=== PATIENT | male | born 1950 | race Hispanic/Latino ===

== ENCOUNTER 2017-10-29 15:31 | Emergency (ER) | payer OTHER, MEDICARE ==
[~2017-10-29 15:31] MED LIST: ASPI-1197 PO; BACL10TA PO; CLOP75TA32 PO; DILT180C3 PO; INSU300I SQ; LISI-617 PO; METO-409 PO; ROSU20TA38 PO; SPIR25TA4 PO; [UNRECOGNIZED DRUG - CODE] PO
[2017-10-29 16:59] LABS: BASOPHILS % (AUTO) 0.3 % (0.0-5.0); HEMATOCRIT 30.8 % (42-54); LYMPHOCYTES % (AUTO) 5.9 % (21.0-51.0); MEAN CORPUSCULAR VOLUME 88.5 fL (79-99); MONOCYTES % (AUTO) 5.4 % (3.0-13.0); NEUTROPHILS % (AUTO) 88.4 % (40.0-77.0); PLATELET COUNT (AUTO) 247 K/uL (130-400); RED BLOOD CELL COUNT(AUTO) 3.48 MIL/uL (4.50-6.20); RED CELL DISTRIBUTION WIDTH 14.3 % (11.0-15.5)
[2017-10-29 17:10] LABS: CARBON DIOXIDE 28 mmol/L (21-32); CHLORIDE 96 mmol/L (101-111); GLOMERULAR FILTR. RATE CALC 36 mL/min (>60); GLUCOSE,RANDOM 137 mg/dL (70-105); POTASSIUM 3.8 mmol/L (3.5-5.1); SODIUM SERUM 133 mmol/L (136-145); UREA NITROGEN, BLOOD 42 mg/dL (7-18)
[2017-10-29 17:13] LABS: INR 0.96 (0.85-1.15); PARTIAL THROMBOPLASTIN TIME 30.1 SEC (26.3-35.5); PROTHROMBIN TIME 10.1 SEC (9.6-11.6)
[2017-10-29 17:23] LABS: ALANINE AMINOTRANSFERASE 15 U/L (12-78); ALBUMIN 2.7 g/dL (3.5-5.0); ASPARTATE AMINOTRANSFERASE 23 U/L (10-37); BILIRUBIN,TOTAL 0.4 mg/dL (0.2-1.0); CREATINE KINASE MB < 0.5 ng/mL (0.5-3.6); CREATINE KINASE, TOTAL 229 U/L (21-232); MYOGLOBIN 209 ng/mL (10-92); TOTAL PROTEIN, SERUM 7.9 g/dL (6.0-8.3)
== END 2017-10-29 18:29 | disposition short-term general hospital (02) ==
LOC: EDH 15:31
DX: R56.9 Unspecified convulsions (principal); R53.1 Weakness; R27.0 Ataxia, unspecified; E11.9 Type 2 diabetes mellitus without complications; I25.810 Atherosclerosis of coronary artery bypass graft(s) without angina pectoris; Z88.1 Allergy status to other antibiotic agents; Z95.1 Presence of aortocoronary bypass graft; Z95.810 Presence of automatic (implantable) cardiac defibrillator; Z86.73 Personal history of transient ischemic attack (TIA), and cerebral infarction without residual deficits; Z79.4 Long term (current) use of insulin
CPT/HCPCS: 36415; 70450; 71045; 80053; 82550; 82553; 83874; 84484; 85025; 85610; 85730; 93005; 94761

== ENCOUNTER → 2018-11-20 | Outpatient (CLI) | payer OTHER, MEDICARE ==
[~2018-11-20] MED LIST changes: +ROSU20TA30 PO; -ROSU20TA38 PO; -SPIR25TA4 PO; +SPIR25TA6 PO
== END | disposition home or self-care (01) ==
LOC: OIH 10:38
PROVIDERS: ATTEND Family Medicine
DX: M25.571 Pain in right ankle and joints of right foot (principal)
CPT/HCPCS: 73610

== ENCOUNTER → 2019-08-29 | Outpatient (CLI) | payer OTHER, MEDICARE ==
[~2019-08-29] MED LIST changes: -DILT180C3 PO; +DILT180C89 PO; -ROSU20TA30 PO; +ROSU20TA31 PO
== END | disposition home or self-care (01) ==
LOC: RAH 09:55
PROVIDERS: ATTEND Family Medicine
DX: I50.22 Chronic systolic (congestive) heart failure (principal); Z95.0 Presence of cardiac pacemaker; Z98.890 Other specified postprocedural states
CPT/HCPCS: 71046

== ENCOUNTER → 2021-02-06 | Outpatient (CLI) | payer OTHER, MEDICARE ==
[~2021-02-06] MED LIST changes: -LISI-617 PO; +LISI-809 PO
== END | disposition home or self-care (01) ==
LOC: RAH 12:38
PROVIDERS: ATTEND Internal Medicine Cardiovascular Disease
DX: I73.9 Peripheral vascular disease, unspecified (principal); R60.0 Localized edema
CPT/HCPCS: 36415; 85378; 93970

== ENCOUNTER 2021-03-18 06:51 | Observation (INO) | payer OTHER, MEDICARE ==
[2021-03-16 14:23] LABS: BASOPHILS % (AUTO) 0.5 % (0.0-5.0); EOSINOPHILS % (AUTO) 1.9 % (0.0-8.0); HEMATOCRIT 31.3 % (42-54); LYMPHOCYTES % (AUTO) 11.2 % (21.0-51.0); MEAN CORPUSCULAR HEMOGLOBIN 28.4 pg (27.0-33.0); MEAN CORPUSCULAR VOLUME 91.8 fL (79-99); MONOCYTES % (AUTO) 6.9 % (3.0-13.0); NEUTROPHILS % (AUTO) 79.1 % (40.0-77.0); PLATELET COUNT (AUTO) 360 K/uL (130-400); RED BLOOD CELL COUNT(AUTO) 3.41 MIL/uL (4.50-6.20); RED CELL DISTRIBUTION WIDTH 16.6 % (11.0-15.5); WHITE BLOOD COUNT (AUTO) 10.8 K/uL (4.8-10.8)
[2021-03-16 14:30] LABS: INR 1.03 (0.85-1.15); PROTHROMBIN TIME 11.2 SEC (9.6-11.6)
[2021-03-16 14:32] LABS: PARTIAL THROMBOPLASTIN TIME 26.2 SEC (26.3-35.5)
[2021-03-16 14:39] LABS: CREATININE 1.4 mg/dL (0.5-1.5); POTASSIUM 4.3 mmol/L (3.5-5.1)
[2021-03-17 14:04] VITALS: BP 122/52
[~2021-03-18] VITALS: Ht 170.2 cm; Wt 66.3 kg
[2021-03-18] VITALS (12 sets, daily range): BP systolic 129–163; BP diastolic 51–78
[~2021-03-18 06:51] MED LIST changes: +ALEN70TA80 PO; +AMIO200T6 PO; -ASPI-1197 PO; +CARV3.12 PO; -DILT180C89 PO; +FAMO20TA8 PO; +FOLIC ACID PO; +GABA600T10 PO; +GLIP5TAB11 PO; -INSU300I SQ; -LISI-809 PO; +MAGN400T40 PO; -METO-409 PO; +SACU1TAB7 PO; +SITA1TAB2 PO; -SPIR25TA6 PO; -[UNRECOGNIZED DRUG - CODE] PO
[2021-03-18 07:16] LABS: APPEARANCE,URINE Clear (CLEAR); BILIRUBIN,URINE Negative (NEGATIVE); COLOR,URINE Yellow (YELLOW); GLUCOSE, URINE (UA) Negative (NEGATIVE); KETONES,URINE Negative (NEGATIVE); LEUKOCYTE ESTERASE ,URINE Negative (NEGATIVE); NITRATE,URINE Negative (NEGATIVE); OCCULT BLOOD,URINE Negative (NEGATIVE); PROTEIN,URINE POS 2+ mg/dL (NEGATIVE)
[2021-03-18 07:31] LABS: BACTERIA,URINE Few /HPF (None Seen); RBC,URINE 0-1 /HPF (0-1); WBC,URINE 0-1 /HPF (0-1)
[2021-03-18 07:32] LABS: SQUAMOUS EPITHELIAL CELL,UR 0-2 /HPF (0-2)
[2021-03-18] MEDS ORDERED: NACL 0.9% 1000ML 1,000 ML IV SCH ×2 (08:00→14:00)
[2021-03-18] MEDS ORDERED: FENTANYL CITRATE PF 50 MCG/1 ML 2ML VIAL ONE (12:40)
[2021-03-18] MEDS ORDERED: LIDOCAINE HCL 400MG/20ML VIAL ONE (12:40)
[2021-03-18] MEDS ORDERED: SODIUM BICARB 50MEQ 50ML VIAL 50 ML ONE (12:40)
[2021-03-18] MEDS ORDERED: NITROGLYCERIN 2 MG VIAL IV ONE (12:40)
[2021-03-18] MEDS ORDERED: MIDAZOLAM HCL 1 MG/ML 2ML VIAL ONE (12:40)
[2021-03-18] MEDS ORDERED: HEPARIN 10,000 UNIT/10ML (1,000 UNIT/ML) VIAL ONE (12:40)
[2021-03-18] MEDS ORDERED: IODIXANOL 320 MG/ML 100 ML VIAL ONE (12:40)
[2021-03-18] MEDS ORDERED: LABETALOL 20MG VIAL IV ONE (13:24)
[2021-03-18] MEDS ORDERED: DEXTROSE 50%-WATER 50 ML DISP.SYRIN IV PRN (14:00)
[2021-03-18] MEDS ORDERED: GLUCAGON 1MG KIT 1 MG ML IM PRN (14:00)
[2021-03-18] MEDS: INSULIN HUMULIN R 100 UNIT/ML 3ML SQ SCH ×2 (16:30→21:20)
[2021-03-18] MEDS ORDERED: SACUBITRIL PO SCH (21:00)
[2021-03-18] MEDS ORDERED: FAMOTIDINE 20MG TAB PO SCH (21:00)
[2021-03-18] MEDS ORDERED: VALSARTAN PO SCH (21:00)
[2021-03-18] MEDS ORDERED: CARVEDILOL 3.125 MG TABLET PO SCH (21:00)
[2021-03-18] MEDS ORDERED: BACLOFEN 10 MG TABLET PO SCH (21:00)
[2021-03-18] MEDS ORDERED: ATORVASTATIN 40 MG TABLET PO SCH (21:00)
[2021-03-18] MEDS ORDERED: GABAPENTIN 300 MG CAPSULE PO SCH (21:00)
[2021-03-19 00:12] VITALS: BP 140/59
[2021-03-19 03:51] LABS: HEMATOCRIT 30.5 % (42-54); MEAN CORPUSCULAR HEMOGLOBIN 28.5 pg (27.0-33.0); MEAN CORPUSCULAR HGB CONC 31.5 g/dL (32.0-36.0); MEAN CORPUSCULAR VOLUME 90.5 fL (79-99); RED BLOOD CELL COUNT(AUTO) 3.37 MIL/uL (4.50-6.20); RED CELL DISTRIBUTION WIDTH 15.9 % (11.0-15.5); WHITE BLOOD COUNT (AUTO) 9.8 K/uL (4.8-10.8)
[2021-03-19 03:59] LABS: POTASSIUM 3.5 mmol/L (3.5-5.1)
[2021-03-19 04:04] VITALS: BP 149/74
[2021-03-19] MEDS: INSULIN HUMULIN R 100 UNIT/ML 3ML SQ SCH (05:40)
[2021-03-19 09:00] VITALS: BP 137/66
[2021-03-19] MEDS ORDERED: AMIODARONE 200 MG TABLET PO SCH (09:00)
[2021-03-19] MEDS ORDERED: MAGNESIUM OXIDE 400 MG TABLET PO SCH (09:00)
[2021-03-19] MEDS ORDERED: GLIPIZIDE 5 MG TABLET PO SCH (09:00)
[2021-03-19] MEDS ORDERED: FOLIC ACID 1 MG TABLET PO SCH (12:00)
[2021-03-25] MEDS ORDERED: ALENDRONATE SODIUM 35 MG TAB PO SCH (09:00)
== END 2021-03-19 10:30 | disposition home or self-care (01) ==
LOC: DAH 06:51 → DAHIP 06:52 → 2DH 15:44
PROVIDERS: ADMIT Internal Medicine Cardiovascular Disease; ATTEND Internal Medicine Cardiovascular Disease
DX: I70.201 Unspecified atherosclerosis of native arteries of extremities, right leg (principal); E11.51 Type 2 diabetes mellitus with diabetic peripheral angiopathy without gangrene; I11.0 Hypertensive heart disease with heart failure; I50.22 Chronic systolic (congestive) heart failure; I25.10 Atherosclerotic heart disease of native coronary artery without angina pectoris; I25.2 Old myocardial infarction; Z89.612 Acquired absence of left leg above knee; Z95.5 Presence of coronary angioplasty implant and graft; Z95.810 Presence of automatic (implantable) cardiac defibrillator; Z79.899 Other long term (current) drug therapy; Z88.5 Allergy status to narcotic agent
CPT/HCPCS: 36246; 36415 ×2; 71045; 75710; 80048 ×2; 81001; 82948 ×4; 85025; 85027; 85610; 85730; 93005; 96360; A4215; A4216; A4221; A4222; A4223 ×3; A4335; A4606; A4663; C1760; C1769; C1893 ×2; C1894 ×4; G0378 ×19; J1644 ×2; J1815; J2250; J3010; J3490 ×4; J7030; Q9967; 99156; 99157

== ENCOUNTER 2021-03-21 11:44 | Inpatient (IN) | payer OTHER, MEDICARE ==
[~2021-03-21] VITALS: Ht 170.2 cm; Wt 70.7 kg
[~2021-03-21 11:44] MED LIST changes: -AMIO200T6 PO; +AMIO200T68 PO
[2021-03-21] MEDS ORDERED: 0.9%NACL 1000ML 500 ML IV ONE (12:30)
[2021-03-21] MEDS ORDERED: DIPH,PERTUSS(ACELL),TET VAC/PF 0.5 ML VIAL IM ONE (12:30)
[2021-03-21 12:56] LABS: BASOPHILS % (AUTO) 0.4 % (0.0-5.0); HEMATOCRIT 34.5 % (42-54); LYMPHOCYTES % (AUTO) 7.5 % (21.0-51.0); MEAN CORPUSCULAR HGB CONC 31.3 g/dL (32.0-36.0); MEAN CORPUSCULAR VOLUME 92.5 fL (79-99); MONOCYTES % (AUTO) 6.6 % (3.0-13.0); NEUTROPHILS % (AUTO) 84.1 % (40.0-77.0); PLATELET COUNT (AUTO) 329 K/uL (130-400); RED BLOOD CELL COUNT(AUTO) 3.73 MIL/uL (4.50-6.20); RED CELL DISTRIBUTION WIDTH 15.8 % (11.0-15.5); WHITE BLOOD COUNT (AUTO) 14.3 K/uL (4.8-10.8)
[2021-03-21 13:02] LABS: INR 1.01 (0.85-1.15)
[2021-03-21 13:04] LABS: CARBON DIOXIDE 24 mmol/L (21-32); CHLORIDE 104 mmol/L (101-111); CREATININE 1.2 mg/dL (0.5-1.5); GLOMERULAR FILTR. RATE CALC 64 mL/min (>60); GLUCOSE,RANDOM 197 mg/dL (70-105); POTASSIUM 3.7 mmol/L (3.5-5.1); SODIUM SERUM 142 mmol/L (136-145); UREA NITROGEN, BLOOD 27 mg/dL (7-18)
[2021-03-21 13:20] LABS: ALANINE AMINOTRANSFERASE 27 U/L (12-78); ALBUMIN 2.6 g/dL (3.5-5.0); ASPARTATE AMINOTRANSFERASE 38 U/L (10-37); BILIRUBIN,TOTAL 0.4 mg/dL (0.2-1.0); MYOGLOBIN 450 ng/mL (10-92); TOTAL PROTEIN, SERUM 7.5 g/dL (6.0-8.3); TROPONIN I < 0.04 ng/mL (0.00-0.06)
[2021-03-21] MEDS ORDERED: IOHEXOL 350 MG/ML 100ML INFUS..BTL IV ONE (13:20)
[2021-03-21 13:21] LABS: CREATINE KINASE, TOTAL 578 U/L (21-232)
[2021-03-21 13:27] LABS: B-TYPE NATRIURETIC PEPTIDE 345 pg/mL (0-100)
[2021-03-21] MEDS ORDERED: 0.9% NACL 500ML IV.SOLN 500 ML IV ONE ×2 (13:32→15:13)
[2021-03-21 15:09] VITALS: BP 170/72
[2021-03-21] MEDS ORDERED: ONDANSETRON 4MG INJ IVP PRN (15:15)
[2021-03-21] MEDS ORDERED: LIDOCAINE HCL-MPF 1% 2ML VIAL IV PRN ×2 (15:45)
[2021-03-21] MEDS ORDERED: POTASSIUM CHLORIDE 10% ELIXIR 20 MEQ/15 ML UDCUP PO PRN (15:45)
[2021-03-21] MEDS ORDERED: GLUCAGON 1MG KIT 1 MG ML IM PRN (15:45)
[2021-03-21] MEDS ORDERED: DEXTROSE 50%-WATER 50 ML DISP.SYRIN IV PRN (15:45)
[2021-03-21] MEDS ORDERED: MAGNESIUM 2GM PREMIX 50ML 50 ML IV PRN (15:45)
[2021-03-21] MEDS ORDERED: KCL 20 MEQ ERTAB PO PRN (15:45)
[2021-03-21] MEDS ORDERED: LABETALOL 20MG VIAL IV PRN (15:45)
[2021-03-21] MEDS ORDERED: POTASSIUM CHLORIDE 20MEQ/100ML 100 ML IV PRN ×2 (15:45)
[2021-03-21] MEDS: LACTATED RINGERS 1000ML 1,000 ML IV SCH (16:21)
[2021-03-21 18:00] VITALS: BP 127/68
[2021-03-21] MEDS: INSULIN HUMULIN R 100 UNIT/ML 3ML SQ SCH (18:00)
[2021-03-21 19:00] VITALS: BP 145/55
[2021-03-21 20:16] VITALS: BP 147/61
[2021-03-21] MEDS ORDERED: FOLI0.4T6 PO (22:51)
[2021-03-21] MEDS ORDERED: ASPI-1005 PO (22:51)
[2021-03-21 23:22] LABS: APPEARANCE,URINE Clear (CLEAR); BILIRUBIN,URINE Negative (NEGATIVE); COLOR,URINE Yellow (YELLOW); GLUCOSE, URINE (UA) Negative (NEGATIVE); KETONES,URINE Negative (NEGATIVE); LEUKOCYTE ESTERASE ,URINE Negative (NEGATIVE); NITRATE,URINE Negative (NEGATIVE); OCCULT BLOOD,URINE Trace (NEGATIVE); PH,URINE 5.5 (5.0-8.0); PROTEIN,URINE POS 2+ mg/dL (NEGATIVE)
[2021-03-21 23:34] LABS: BACTERIA,URINE Rare /HPF (None Seen); RBC,URINE None Seen /HPF (0-1); WBC,URINE None Seen /HPF (0-1)
[2021-03-21 23:45] LABS: AMPHET/METH SCREEN,URINE NEGATIVE (NEGATIVE); BARBITURATE SCREEN, URINE NEGATIVE (NEGATIVE); BENZODIAZEPINES SCREEN,URINE NEGATIVE (NEGATIVE); CANNABINOID SCREEN,URINE POSITIVE (NEGATIVE); COCAINE SCREEN,URINE NEGATIVE (NEGATIVE); OPIATE SCREEN,URINE NEGATIVE (NEGATIVE); PHENCYCLIDINE SCREEN,URINE NEGATIVE (NEGATIVE)
[2021-03-22] VITALS (7 sets, daily range): BP systolic 111–165; BP diastolic 41–75
[2021-03-22] MEDS: LACTATED RINGERS 1000ML 1,000 ML IV SCH ×2 (04:41→18:08)
[2021-03-22 05:39] LABS: HEMATOCRIT 31.2 % (42-54); MEAN CORPUSCULAR HEMOGLOBIN 28.9 pg (27.0-33.0); MEAN CORPUSCULAR HGB CONC 31.7 g/dL (32.0-36.0); RED BLOOD CELL COUNT(AUTO) 3.43 MIL/uL (4.50-6.20); RED CELL DISTRIBUTION WIDTH 15.9 % (11.0-15.5); WHITE BLOOD COUNT (AUTO) 10.7 K/uL (4.8-10.8)
[2021-03-22] MEDS: INSULIN HUMULIN R 100 UNIT/ML 3ML SQ SCH ×4 (06:00→17:33)
[2021-03-22 06:04] LABS: CREATININE 0.9 mg/dL (0.5-1.5); MAGNESIUM 1.4 mg/dL (1.80-2.40); POTASSIUM 3.7 mmol/L (3.5-5.1)
[2021-03-22] MEDS ORDERED: 0.9%NACL 50ML 50 ML IV ONE (09:23)
[2021-03-22] MEDS: PANTOPRAZOLE 40 MG/VIAL IVP SCH (09:24)
[2021-03-22] MEDS ORDERED: GUAIFENESIN-DM 200/20 MG 10 ML ONE (14:40)
[2021-03-22] MEDS ORDERED: GUAIFENESIN-DM 200/20 MG 10 ML PO PRN (15:00)
[2021-03-22] MEDS ORDERED: KETOROLAC 15MG/ML VIAL (15MG/ML) IV ONE (17:15)
[2021-03-22] MEDS ORDERED: ACETAMINOPHEN WITH CODEINE 1 TAB TAB PO PRN (17:15)
[2021-03-22] MEDS: NITROGLYCERIN 1GM OINT 1 INCH/1GM TD SCH (18:11)
[2021-03-22] MEDS: GUAIFENESIN 600 MG TABLET.ER PO SCH (21:17)
[2021-03-23] VITALS (11 sets, daily range): BP systolic 119–186; BP diastolic 41–76
[2021-03-23] MEDS: NITROGLYCERIN 1GM OINT 1 INCH/1GM TD SCH ×3 (01:12→17:30)
[2021-03-23 04:36] LABS: HEMATOCRIT 30.8 % (42-54); MEAN CORPUSCULAR HEMOGLOBIN 28.9 pg (27.0-33.0); MEAN CORPUSCULAR HGB CONC 31.8 g/dL (32.0-36.0); MEAN CORPUSCULAR VOLUME 90.9 fL (79-99); RED BLOOD CELL COUNT(AUTO) 3.39 MIL/uL (4.50-6.20); RED CELL DISTRIBUTION WIDTH 15.4 % (11.0-15.5); WHITE BLOOD COUNT (AUTO) 10.6 K/uL (4.8-10.8)
[2021-03-23 05:08] LABS: CREATININE 0.9 mg/dL (0.5-1.5); MAGNESIUM 1.3 mg/dL (1.80-2.40); POTASSIUM 3.8 mmol/L (3.5-5.1)
[2021-03-23] MEDS: INSULIN HUMULIN R 100 UNIT/ML 3ML SQ SCH ×4 (05:49→17:39)
[2021-03-23] MEDS: LACTATED RINGERS 1000ML 1,000 ML IV SCH ×2 (07:15→22:29)
[2021-03-23] MEDS: PANTOPRAZOLE 40 MG/VIAL IVP SCH (08:19)
[2021-03-23] MEDS: GUAIFENESIN 600 MG TABLET.ER PO SCH ×2 (08:43→21:08)
[2021-03-23] MEDS: ASPIRIN 81MG CHEW TAB PO SCH (09:23)
[2021-03-23] MEDS: CARVEDILOL 3.125 MG TABLET PO SCH ×2 (09:23→21:28)
[2021-03-23] MEDS: FOLIC ACID 1 MG TABLET PO SCH (09:26)
[2021-03-23] MEDS: SACUBITRIL/VALSARTAN 1 EACH TABLET PO SCH ×2 (09:26→21:08)
[2021-03-23] MEDS: CLOPIDOGREL 75MG TAB PO SCH (09:26)
[2021-03-23] MEDS: GABAPENTIN 300 MG CAPSULE PO SCH ×2 (09:26→21:08)
[2021-03-23] MEDS: MAGNESIUM OXIDE 400 MG TABLET PO SCH (09:26)
[2021-03-23] MEDS: AMIODARONE 200 MG TABLET PO SCH (09:26)
[2021-03-23] MEDS: ATORVASTATIN 40 MG TABLET PO SCH (21:08)
[2021-03-24] MEDS: INSULIN HUMULIN R 100 UNIT/ML 3ML SQ SCH ×5 (00:15→20:36)
[2021-03-24] MEDS: IPRATROPIUM 0.5 MG/2.5 ML INH IH SCH (00:45)
[2021-03-24] MEDS: NITROGLYCERIN 1GM OINT 1 INCH/1GM TD SCH ×3 (01:37→16:53)
[2021-03-24 03:45] VITALS: BP 145/65
[2021-03-24 04:28] LABS: HEMATOCRIT 29.4 % (42-54); MEAN CORPUSCULAR HGB CONC 31.3 g/dL (32.0-36.0); MEAN CORPUSCULAR VOLUME 89.4 fL (79-99); RED BLOOD CELL COUNT(AUTO) 3.29 MIL/uL (4.50-6.20); RED CELL DISTRIBUTION WIDTH 15.1 % (11.0-15.5); WHITE BLOOD COUNT (AUTO) 9.9 K/uL (4.8-10.8)
[2021-03-24 04:48] LABS: POTASSIUM 3.7 mmol/L (3.5-5.1)
[2021-03-24 08:17] VITALS: BP 180/67
[2021-03-24] MEDS: FOLIC ACID 1 MG TABLET PO SCH (08:22)
[2021-03-24] MEDS: MAGNESIUM OXIDE 400 MG TABLET PO SCH (08:22)
[2021-03-24] MEDS: AMIODARONE 200 MG TABLET PO SCH (08:23)
[2021-03-24] MEDS: GUAIFENESIN 600 MG TABLET.ER PO SCH ×2 (08:23→20:32)
[2021-03-24] MEDS: CARVEDILOL 3.125 MG TABLET PO SCH ×2 (08:23→20:32)
[2021-03-24] MEDS: ASPIRIN 81MG CHEW TAB PO SCH (08:23)
[2021-03-24] MEDS: CLOPIDOGREL 75MG TAB PO SCH (08:23)
[2021-03-24] MEDS: GABAPENTIN 300 MG CAPSULE PO SCH ×2 (08:23→20:31)
[2021-03-24] MEDS: PANTOPRAZOLE 40 MG/VIAL IVP SCH (08:23)
[2021-03-24] MEDS: LACTATED RINGERS 1000ML 1,000 ML IV SCH (08:27)
[2021-03-24] MEDS ORDERED: SODIUM HYPOCHLORITE 0.125% 473 ML SOLUTION TP SCH (09:00)
[2021-03-24 11:41] VITALS: BP 141/64
[2021-03-24 16:00] VITALS: BP 146/58
[2021-03-24] MEDS: SACUBITRIL/VALSARTAN 1 EACH TABLET PO SCH ×2 (17:30→20:32)
[2021-03-24 19:47] VITALS: BP 148/60
[2021-03-24] MEDS: ATORVASTATIN 40 MG TABLET PO SCH (20:31)
[2021-03-25] VITALS (21 sets, daily range): BP systolic 123–194; BP diastolic 42–96
[2021-03-25] MEDS: NITROGLYCERIN 1GM OINT 1 INCH/1GM TD SCH ×3 (01:10→18:16)
[2021-03-25 04:42] LABS: HEMATOCRIT 29.1 % (42-54); MEAN CORPUSCULAR HEMOGLOBIN 28.8 pg (27.0-33.0); MEAN CORPUSCULAR HGB CONC 31.6 g/dL (32.0-36.0); MEAN CORPUSCULAR VOLUME 91.2 fL (79-99); RED BLOOD CELL COUNT(AUTO) 3.19 MIL/uL (4.50-6.20); RED CELL DISTRIBUTION WIDTH 14.9 % (11.0-15.5); WHITE BLOOD COUNT (AUTO) 10.3 K/uL (4.8-10.8)
[2021-03-25 04:53] LABS: INR 1.06 (0.85-1.15); PROTHROMBIN TIME 11.5 SEC (9.6-11.6)
[2021-03-25 04:54] LABS: PARTIAL THROMBOPLASTIN TIME 27.9 SEC (26.3-35.5); POTASSIUM 3.5 mmol/L (3.5-5.1)
[2021-03-25] MEDS: INSULIN HUMULIN R 100 UNIT/ML 3ML SQ SCH ×4 (05:48→21:00)
[2021-03-25] MEDS ORDERED: 0.9%NACL 1000ML 1,000 ML IV ONE (06:53)
[2021-03-25] MEDS ORDERED: CEFAZOLIN SODIUM 1 GM VIAL ONE ×2 (06:53→07:49)
[2021-03-25] MEDS: CEFAZOLIN SODIUM 1 GM VIAL IVP PRN ×2 (07:25→08:30)
[2021-03-25] MEDS ORDERED: PAPAVERINE HCL 30 MG/ML 2ML VIAL ONE (07:48)
[2021-03-25] MEDS ORDERED: PROTAMINE SULFATE 10 MG/ML 5 ML VIAL ONE (07:48)
[2021-03-25] MEDS ORDERED: HEPARIN 10,000 UNIT/10ML (1,000 UNIT/ML) VIAL ONE (07:48)
[2021-03-25] MEDS ORDERED: KETAMINE 50MG/ML SYRINGE 50 MG/ML DISP.SYRIN IV ONE (08:05)
[2021-03-25] MEDS ORDERED: ROCURONIUM 10MG/1ML SYR 10 MG/ML ML ONE (08:11)
[2021-03-25] MEDS ORDERED: LIDOCAINE PF 100MG/5ML (2%) SYRINGE 5ML ONE (08:11)
[2021-03-25] MEDS ORDERED: PROPOFOL 10 MG/ML 20ML VIAL IV ONE (08:11)
[2021-03-25] MEDS ORDERED: GLYCOPYRROLATE 1 MG/5 ML SYRINGE ONE (08:12)
[2021-03-25] MEDS ORDERED: PHENYLEPHRINE HCL 10 MG/ML 1ML VIAL IV ONE (08:30)
[2021-03-25] MEDS ORDERED: ACETAMINOPHEN 325 MG TAB PO PRN (09:45)
[2021-03-25] MEDS ORDERED: TRAMADOL HCL 50 MG TABLET PO PRN (09:45)
[2021-03-25] MEDS ORDERED: NEOSTIGMINE 5MG/5ML SYR IV ONE (10:12)
[2021-03-25] MEDS: CLOPIDOGREL 75MG TAB PO SCH (12:00)
[2021-03-25] MEDS ORDERED: 0.9% NACL 250ML 250 ML ONE (12:26)
[2021-03-25] MEDS: TRAMADOL HCL 50 MG TABLET PO PRN (12:35)
[2021-03-25] MEDS: ASPIRIN 81MG CHEW TAB PO SCH (13:40)
[2021-03-25] MEDS: MAGNESIUM OXIDE 400 MG TABLET PO SCH (13:41)
[2021-03-25] MEDS: GABAPENTIN 300 MG CAPSULE PO SCH ×2 (13:41→20:30)
[2021-03-25] MEDS: FOLIC ACID 1 MG TABLET PO SCH (13:41)
[2021-03-25] MEDS: AMIODARONE 200 MG TABLET PO SCH (13:41)
[2021-03-25] MEDS: CARVEDILOL 3.125 MG TABLET PO SCH ×2 (13:42→20:30)
[2021-03-25] MEDS: PANTOPRAZOLE 40 MG/VIAL IVP SCH (13:42)
[2021-03-25] MEDS: GUAIFENESIN 600 MG TABLET.ER PO SCH ×2 (13:44→20:30)
[2021-03-25] MEDS: SACUBITRIL/VALSARTAN 1 EACH TABLET PO SCH ×2 (14:00→21:16)
[2021-03-25] MEDS: SODIUM HYPOCHLORITE 0.125% 473 ML SOLUTION TP SCH (16:00)
[2021-03-25] MEDS: CEFAZOLIN SODIUM 1 GM VIAL IVP SCH (18:18)
[2021-03-25] MEDS: ATORVASTATIN 40 MG TABLET PO SCH (20:30)
[2021-03-25] MEDS ORDERED: 0.9%NACL 100ML 100 ML ONE (20:34)
[2021-03-26] VITALS (13 sets, daily range): BP systolic 129–178; BP diastolic 43–62
[2021-03-26] MEDS: CEFAZOLIN SODIUM 1 GM VIAL IVP SCH ×2 (00:22→09:22)
[2021-03-26] MEDS: NITROGLYCERIN 1GM OINT 1 INCH/1GM TD SCH ×2 (00:50→09:25)
[2021-03-26 05:06] LABS: HEMATOCRIT 27.6 % (42-54); MEAN CORPUSCULAR HEMOGLOBIN 27.7 pg (27.0-33.0); MEAN CORPUSCULAR HGB CONC 30.4 g/dL (32.0-36.0); MEAN CORPUSCULAR VOLUME 91.1 fL (79-99); PLATELET COUNT (AUTO) 275 K/uL (130-400); RED BLOOD CELL COUNT(AUTO) 3.03 MIL/uL (4.50-6.20); RED CELL DISTRIBUTION WIDTH 15.4 % (11.0-15.5); WHITE BLOOD COUNT (AUTO) 9.6 K/uL (4.8-10.8)
[2021-03-26 05:18] LABS: CREATININE 0.9 mg/dL (0.5-1.5); POTASSIUM 3.8 mmol/L (3.5-5.1)
[2021-03-26] MEDS: INSULIN HUMULIN R 100 UNIT/ML 3ML SQ SCH ×4 (05:30→21:00)
[2021-03-26] MEDS: TRAMADOL HCL 50 MG TABLET PO PRN ×2 (07:36→12:21)
[2021-03-26] MEDS: PANTOPRAZOLE 40 MG/VIAL IVP SCH (09:22)
[2021-03-26] MEDS: CARVEDILOL 3.125 MG TABLET PO SCH ×2 (09:23→21:14)
[2021-03-26] MEDS: GABAPENTIN 300 MG CAPSULE PO SCH ×2 (09:23→21:14)
[2021-03-26] MEDS: GUAIFENESIN 600 MG TABLET.ER PO SCH (09:23)
[2021-03-26] MEDS: AMIODARONE 200 MG TABLET PO SCH (09:23)
[2021-03-26] MEDS: SACUBITRIL/VALSARTAN 1 EACH TABLET PO SCH ×2 (09:23→21:14)
[2021-03-26] MEDS: ASPIRIN 81MG CHEW TAB PO SCH (09:24)
[2021-03-26] MEDS: MAGNESIUM OXIDE 400 MG TABLET PO SCH (09:24)
[2021-03-26] MEDS: CLOPIDOGREL 75MG TAB PO SCH (09:24)
[2021-03-26] MEDS: FOLIC ACID 1 MG TABLET PO SCH (09:24)
[2021-03-26] MEDS: IPRATROPIUM 0.5 MG/2.5 ML INH IH SCH ×2 (09:30→11:37)
[2021-03-26] MEDS: SODIUM HYPOCHLORITE 0.125% 473 ML SOLUTION TP SCH (09:38)
[2021-03-26] MEDS ORDERED: TRAMADOL HCL 50 MG TABLET PO PRN (12:15)
[2021-03-26] MEDS: IPRATROPIUM/ALBUTEROL SULFATE 3 ML SOLUTION IH SCH ×3 (14:25→22:29)
[2021-03-26] MEDS: BUDESONIDE 0.5 MG/2 ML INH IH SCH (19:20)
[2021-03-26] MEDS: ATORVASTATIN 40 MG TABLET PO SCH (21:14)
[2021-03-27] MEDS: IPRATROPIUM/ALBUTEROL SULFATE 3 ML SOLUTION IH SCH ×6 (00:55→23:28)
[2021-03-27 03:37] VITALS: BP 148/54
[2021-03-27] MEDS: BUDESONIDE 0.5 MG/2 ML INH IH SCH ×2 (06:33→18:49)
[2021-03-27] MEDS: INSULIN HUMULIN R 100 UNIT/ML 3ML SQ SCH ×4 (07:30→22:39)
[2021-03-27 08:00] VITALS: BP 125/53
[2021-03-27] MEDS: ASPIRIN 81MG CHEW TAB PO SCH (09:15)
[2021-03-27] MEDS: MAGNESIUM OXIDE 400 MG TABLET PO SCH (09:16)
[2021-03-27] MEDS: FOLIC ACID 1 MG TABLET PO SCH (09:16)
[2021-03-27] MEDS: CARVEDILOL 3.125 MG TABLET PO SCH ×2 (09:16→22:33)
[2021-03-27] MEDS: AMIODARONE 200 MG TABLET PO SCH (09:17)
[2021-03-27] MEDS: GABAPENTIN 300 MG CAPSULE PO SCH ×2 (09:17→22:33)
[2021-03-27] MEDS: CLOPIDOGREL 75MG TAB PO SCH (09:17)
[2021-03-27] MEDS: SODIUM HYPOCHLORITE 0.125% 473 ML SOLUTION TP SCH (09:18)
[2021-03-27] MEDS: HONEY 1 APPL/ML TUBE TP SCH (09:18)
[2021-03-27] MEDS: PANTOPRAZOLE 40 MG/VIAL IVP SCH (09:19)
[2021-03-27] MEDS: SACUBITRIL/VALSARTAN 1 EACH TABLET PO SCH ×2 (09:20→22:33)
[2021-03-27] MEDS ORDERED: MAGNESIUM CITRATE 296 ML SOLUTION PO PRN (09:45)
[2021-03-27] MEDS: POLYETHYLENE GLYCOL 3350 17 GM POWD.PACK PO SCH (11:09)
[2021-03-27] MEDS: TRAMADOL HCL 50 MG TABLET PO PRN (11:19)
[2021-03-27 12:00] VITALS: BP 145/58
[2021-03-27 17:54] VITALS: BP 136/52
[2021-03-27 19:06] VITALS: BP 146/55
[2021-03-27] MEDS: ATORVASTATIN 40 MG TABLET PO SCH (22:33)
[2021-03-27 23:21] VITALS: BP 155/54
[2021-03-28] VITALS (7 sets, daily range): BP systolic 112–139; BP diastolic 48–59
[2021-03-28] MEDS: IPRATROPIUM/ALBUTEROL SULFATE 3 ML SOLUTION IH SCH ×6 (02:03→23:32)
[2021-03-28 04:27] LABS: HEMATOCRIT 28.7 % (42-54); MEAN CORPUSCULAR HEMOGLOBIN 28.3 pg (27.0-33.0); MEAN CORPUSCULAR VOLUME 91.1 fL (79-99); RED BLOOD CELL COUNT(AUTO) 3.15 MIL/uL (4.50-6.20); RED CELL DISTRIBUTION WIDTH 15.2 % (11.0-15.5); WHITE BLOOD COUNT (AUTO) 10.6 K/uL (4.8-10.8)
[2021-03-28 04:36] LABS: CREATININE 1.1 mg/dL (0.5-1.5); POTASSIUM 4.1 mmol/L (3.5-5.1)
[2021-03-28] MEDS: INSULIN HUMULIN R 100 UNIT/ML 3ML SQ SCH ×4 (06:04→21:00)
[2021-03-28] MEDS: BUDESONIDE 0.5 MG/2 ML INH IH SCH ×2 (06:09→18:43)
[2021-03-28] MEDS: ASPIRIN 81MG CHEW TAB PO SCH (09:05)
[2021-03-28] MEDS: SACUBITRIL/VALSARTAN 1 EACH TABLET PO SCH ×2 (09:05→19:45)
[2021-03-28] MEDS: MAGNESIUM OXIDE 400 MG TABLET PO SCH (09:05)
[2021-03-28] MEDS: GABAPENTIN 300 MG CAPSULE PO SCH ×2 (09:05→19:45)
[2021-03-28] MEDS: PANTOPRAZOLE 40 MG/VIAL IVP SCH (09:05)
[2021-03-28] MEDS: POLYETHYLENE GLYCOL 3350 17 GM POWD.PACK PO SCH (09:05)
[2021-03-28] MEDS: AMIODARONE 200 MG TABLET PO SCH (09:06)
[2021-03-28] MEDS: FOLIC ACID 1 MG TABLET PO SCH (09:06)
[2021-03-28] MEDS: CLOPIDOGREL 75MG TAB PO SCH (09:06)
[2021-03-28] MEDS: HONEY 1 APPL/ML TUBE TP SCH (09:07)
[2021-03-28] MEDS: SODIUM HYPOCHLORITE 0.125% 473 ML SOLUTION TP SCH (09:07)
[2021-03-28] MEDS: CARVEDILOL 3.125 MG TABLET PO SCH ×2 (09:10→19:47)
[2021-03-28] MEDS: ATORVASTATIN 40 MG TABLET PO SCH (19:45)
[2021-03-29] MEDS: IPRATROPIUM/ALBUTEROL SULFATE 3 ML SOLUTION IH SCH ×5 (02:43→18:25)
[2021-03-29 04:00] VITALS: BP 93/48
[2021-03-29 05:14] LABS: BASOPHILS % (AUTO) 0.4 % (0.0-5.0); HEMATOCRIT 28.9 % (42-54); MEAN CORPUSCULAR HEMOGLOBIN 27.9 pg (27.0-33.0); MEAN CORPUSCULAR HGB CONC 30.8 g/dL (32.0-36.0); MEAN CORPUSCULAR VOLUME 90.6 fL (79-99); MONOCYTES % (AUTO) 6.1 % (3.0-13.0); NEUTROPHILS % (AUTO) 79.9 % (40.0-77.0); PLATELET COUNT (AUTO) 301 K/uL (130-400); RED BLOOD CELL COUNT(AUTO) 3.19 MIL/uL (4.50-6.20); RED CELL DISTRIBUTION WIDTH 14.9 % (11.0-15.5); WHITE BLOOD COUNT (AUTO) 10.3 K/uL (4.8-10.8)
[2021-03-29] MEDS: INSULIN HUMULIN R 100 UNIT/ML 3ML SQ SCH ×3 (06:32→16:30)
[2021-03-29] MEDS: BUDESONIDE 0.5 MG/2 ML INH IH SCH ×2 (06:52→18:25)
[2021-03-29 08:00] VITALS: BP 163/56
[2021-03-29] MEDS: ASPIRIN 81MG CHEW TAB PO SCH (08:58)
[2021-03-29] MEDS: PANTOPRAZOLE 40 MG/VIAL IVP SCH (08:59)
[2021-03-29] MEDS: SACUBITRIL/VALSARTAN 1 EACH TABLET PO SCH ×2 (08:59→19:55)
[2021-03-29] MEDS: CARVEDILOL 3.125 MG TABLET PO SCH ×2 (08:59→19:55)
[2021-03-29] MEDS: FOLIC ACID 1 MG TABLET PO SCH (09:00)
[2021-03-29] MEDS: POLYETHYLENE GLYCOL 3350 17 GM POWD.PACK PO SCH (09:00)
[2021-03-29] MEDS: GABAPENTIN 300 MG CAPSULE PO SCH ×2 (09:03→19:54)
[2021-03-29] MEDS: CLOPIDOGREL 75MG TAB PO SCH (09:03)
[2021-03-29] MEDS: MAGNESIUM OXIDE 400 MG TABLET PO SCH (09:03)
[2021-03-29] MEDS: AMIODARONE 200 MG TABLET PO SCH (09:04)
[2021-03-29] MEDS: HONEY 1 APPL/ML TUBE TP SCH (09:42)
[2021-03-29] MEDS: SODIUM HYPOCHLORITE 0.125% 473 ML SOLUTION TP SCH (09:42)
[2021-03-29 12:00] VITALS: BP 133/48
[2021-03-29 16:00] VITALS: BP 148/52
[2021-03-29] MEDS ORDERED: LEVOFLOXACIN 750 MG TABLET PO SCH (17:45)
[2021-03-29] MEDS ORDERED: SOLU-MEDROL 40MG VIAL IVP SCH (17:45)
[2021-03-29] MEDS ORDERED: SOLU-MEDROL 40MG VIAL IVP STA (17:52)
[2021-03-29] MEDS: ATORVASTATIN 40 MG TABLET PO SCH (19:54)
[2021-03-29 20:06] VITALS: BP 137/69
[2021-03-30] MEDS ORDERED: ALENDRONATE SODIUM 35 MG TAB PO SCH (09:00)
== END 2021-03-29 21:07 | DRG 252 ==
LOC: EDH 11:44 → OBSVTOIN 15:39 → EDHIP 15:39 → 4DH 03-23 11:45 → 2CH 03-25 10:29 → 2DH 03-26 20:48 → 4AH 03-28 03:35
PROVIDERS: ADMIT Internal Medicine Critical Care Medicine; ATTEND Internal Medicine Critical Care Medicine
PROC: 30233R1 Transfusion of Nonautologous Platelets into Peripheral Vein, Percutaneous Approach (ICD-10-PCS; 2021-03-21)
PROC: 041K0KN Bypass Right Femoral Artery to Posterior Tibial Artery with Nonautologous Tissue Substitute, Open Approach (ICD-10-PCS; principal; 2021-03-25 08:13)
DX: E11.51 Type 2 diabetes mellitus with diabetic peripheral angiopathy without gangrene (principal); S72.002A Fracture of unspecified part of neck of left femur, initial encounter for closed fracture; J95.2 Acute pulmonary insufficiency following nonthoracic surgery; M62.82 Rhabdomyolysis; J44.1 Chronic obstructive pulmonary disease with (acute) exacerbation; I70.201 Unspecified atherosclerosis of native arteries of extremities, right leg; N28.89 Other specified disorders of kidney and ureter; I10 Essential (primary) hypertension; I25.10 Atherosclerotic heart disease of native coronary artery without angina pectoris; S09.90XA Unspecified injury of head, initial encounter; L97.509 Non-pressure chronic ulcer of other part of unspecified foot with unspecified severity; I25.5 Ischemic cardiomyopathy; E78.5 Hyperlipidemia, unspecified; E11.621 Type 2 diabetes mellitus with foot ulcer; K21.9 Gastro-esophageal reflux disease without esophagitis; E78.00 Pure hypercholesterolemia, unspecified; R53.81 Other malaise; S80.811A Abrasion, right lower leg, initial encounter; Z20.822 Contact with and (suspected) exposure to COVID-19; S00.12XA Contusion of left eyelid and periocular area, initial encounter; W06.XXXA Fall from bed, initial encounter; Y93.89 Activity, other specified; Y92.092 Bedroom in other non-institutional residence as the place of occurrence of the external cause; Y99.8 Other external cause status; Z79.01 Long term (current) use of anticoagulants; Z79.02 Long term (current) use of antithrombotics/antiplatelets; Z79.82 Long term (current) use of aspirin; Z79.899 Other long term (current) drug therapy; Z95.1 Presence of aortocoronary bypass graft; Z87.891 Personal history of nicotine dependence; Z95.810 Presence of automatic (implantable) cardiac defibrillator; Z89.612 Acquired absence of left leg above knee; Z88.5 Allergy status to narcotic agent; Z88.8 Allergy status to other drugs, medicaments and biological substances; Y83.8 Other surgical procedures as the cause of abnormal reaction of the patient, or of later complication, without mention of misadventure at the time of the procedure; Y71.8 Miscellaneous cardiovascular devices associated with adverse incidents, not elsewhere classified; Y92.89 Other specified places as the place of occurrence of the external cause
CPT/HCPCS: 36246; 36415; 70450; 71045; 71260; 72125; 73552; 73590; 73630; 74177; 75710; 80048; 80053; 80305; 81001; 82550; 82948; 83605; 83735; 83874; 83880; 84145; 84484; 85025; 85027; 85378; 85610; 85730; 86850; 86900; 86901; 86923; 87040; 87635; 87804; 90715; 92526; 92610; 93005; 94640; 94664; 96360; 97039; 99156; 99157; A4344; A4606; C1893; C1894; C9113; G0378; J0690; J1644; J1815; J1885; J2001; J2250; J2370; J2440; J2704; J2710; J2720; J2920; J3010; J3480; J3490; J7030; J7040; J7050; J7120; P9034; Q9967

== ENCOUNTER → 2021-05-20 | Outpatient (CLI) | payer OTHER, MEDICARE ==
[~2021-05-20] MED LIST changes: +AMIO200T6 PO; -AMIO200T68 PO; +ASPI-1005 PO; +FOLI0.4T6 PO; -FOLIC ACID PO
== END | disposition home or self-care (01) ==
LOC: WHH 09:35
PROVIDERS: ATTEND Podiatrist Foot & Ankle Surgery
DX: I70.234 Atherosclerosis of native arteries of right leg with ulceration of heel and midfoot (principal); E11.621 Type 2 diabetes mellitus with foot ulcer; L97.422 Non-pressure chronic ulcer of left heel and midfoot with fat layer exposed; L97.512 Non-pressure chronic ulcer of other part of right foot with fat layer exposed; E11.22 Type 2 diabetes mellitus with diabetic chronic kidney disease; I13.0 Hypertensive heart and chronic kidney disease with heart failure and stage 1 through stage 4 chronic kidney disease, or unspecified chronic kidney disease; N18.2 Chronic kidney disease, stage 2 (mild); I50.9 Heart failure, unspecified; I25.5 Ischemic cardiomyopathy; J44.9 Chronic obstructive pulmonary disease, unspecified; E78.5 Hyperlipidemia, unspecified; E78.00 Pure hypercholesterolemia, unspecified; M62.82 Rhabdomyolysis; Z86.19 Personal history of other infectious and parasitic diseases; Z89.612 Acquired absence of left leg above knee; Z95.1 Presence of aortocoronary bypass graft; Z79.899 Other long term (current) drug therapy; K21.9 Gastro-esophageal reflux disease without esophagitis; Z79.01 Long term (current) use of anticoagulants; Z79.02 Long term (current) use of antithrombotics/antiplatelets; Z87.891 Personal history of nicotine dependence
CPT/HCPCS: G0463

== ENCOUNTER 2021-09-08 09:05 | Inpatient (IN) | payer OTHER, MEDICARE ==
[~2021-09-08] VITALS: Ht 193 cm; Wt 83.1 kg
[~2021-09-08 09:05] MED LIST changes: -AMIO200T6 PO; +AMIO200T68 PO
[2021-09-08 09:26] LABS: BASOPHILS % (AUTO) 0.4 % (0.0-5.0); HEMATOCRIT 33.3 % (42-54); LYMPHOCYTES % (AUTO) 7.6 % (21.0-51.0); MEAN CORPUSCULAR HEMOGLOBIN 23.5 pg (27.0-33.0); MEAN CORPUSCULAR VOLUME 78.2 fL (79-99); MONOCYTES % (AUTO) 6.1 % (3.0-13.0); NEUTROPHILS % (AUTO) 85.5 % (40.0-77.0); PLATELET COUNT (AUTO) 254 K/uL (130-400); RED BLOOD CELL COUNT(AUTO) 4.26 MIL/uL (4.50-6.20); RED CELL DISTRIBUTION WIDTH 16.9 % (11.0-15.5); WHITE BLOOD COUNT (AUTO) 13.1 K/uL (4.8-10.8)
[2021-09-08] MEDS ORDERED: ACETAMINOPHEN 500 MG TABLET PO ONE (09:30)
[2021-09-08] MEDS ORDERED: AZITHROMYCIN 250 MG TABLET PO ONE (09:30)
[2021-09-08] MEDS ORDERED: CEFTRIAXONE 1G VIAL IVP ONE (09:30)
[2021-09-08 09:39] LABS: CREATININE 1.6 mg/dL (0.5-1.5); POTASSIUM 4.3 mmol/L (3.5-5.1)
[2021-09-08 09:50] LABS: BILIRUBIN,TOTAL 0.7 mg/dL (0.2-1.0); TOTAL PROTEIN, SERUM 7.5 g/dL (6.0-8.3)
[2021-09-08 10:00] LABS: B-TYPE NATRIURETIC PEPTIDE 4000 pg/mL (0-100)
[2021-09-08] MEDS ORDERED: FUROSEMIDE 40MG VIAL IV ONE (10:30)
[2021-09-08 11:03] LABS: ABG BASE EXCESS 0.2 mmol/L (-2.0-3.0); ABG HCO3 24.1 mmol/L (21.0-28.0); ABG OXYGEN SATURATION 95.7 % (95.0-99.0); ABG PCO2 36 mmHg (35-48)
[2021-09-08] MEDS: 0.9% NACL 250ML IVPB SCH (14:30)
[2021-09-08] MEDS: CEFTRIAXONE 1G VIAL IVP SCH (14:30)
[2021-09-08] MEDS ORDERED: ONDANSETRON 4MG INJ IVP PRN (14:30)
[2021-09-08] MEDS ORDERED: ACETAMINOPHEN 325 MG/10.15ML UDCUP PO PRN (14:30)
[2021-09-08] MEDS: AZITHROMYCIN 500MG+NS 250ML IV SCH (14:30)
[2021-09-08] MEDS: 0.9%NACL 1000ML 1,000 ML IV SCH (15:38)
[2021-09-08 16:18] LABS: APPEARANCE,URINE Clear (CLEAR); BILIRUBIN,URINE Negative (NEGATIVE); COLOR,URINE Yellow (YELLOW); GLUCOSE, URINE (UA) Negative (NEGATIVE); KETONES,URINE Negative (NEGATIVE); LEUKOCYTE ESTERASE ,URINE Negative (NEGATIVE); NITRATE,URINE Negative (NEGATIVE); OCCULT BLOOD,URINE Trace (NEGATIVE); PROTEIN,URINE POS 2+ mg/dL (NEGATIVE); UROBILINOGEN,URINE 0.2 mg/dL (0.2-1.0)
[2021-09-08 16:30] LABS: RBC,URINE 0-1 /HPF (0-1); WBC,URINE 0-1 /HPF (0-1)
[2021-09-08 16:31] LABS: BACTERIA,URINE Rare /HPF (None Seen); SQUAMOUS EPITHELIAL CELL,UR Rare /HPF (0-2)
[2021-09-08] MEDS ORDERED: IPRATROPIUM/ALBUTEROL SULFATE 3 ML SOLUTION IH ONE (16:58)
[2021-09-08] MEDS: IPRATROPIUM/ALBUTEROL SULFATE 3 ML SOLUTION IH SCH (17:34)
[2021-09-08] MEDS ORDERED: SOLU-MEDROL 125MG VIAL IVP SCH (21:00)
[2021-09-08] MEDS: INSULIN HUMULIN R 100 UNIT/ML 3ML SQ SCH (22:03)
[2021-09-08] MEDS ORDERED: PROMETHAZINE/CODEINE 6.25-10MG/5ML CUP PO PRN (23:30)
[2021-09-09] VITALS (7 sets, daily range): BP systolic 106–162; BP diastolic 47–76
[2021-09-09] MEDS: IPRATROPIUM/ALBUTEROL SULFATE 3 ML SOLUTION IH SCH ×6 (00:01→23:30)
[2021-09-09] MEDS: 0.9%NACL 1000ML 1,000 ML IV SCH (03:50)
[2021-09-09 05:55] LABS: BASOPHILS % (AUTO) 0.2 % (0.0-5.0); EOSINOPHILS % (AUTO) 2.2 % (0.0-8.0); HEMATOCRIT 34.4 % (42-54); LYMPHOCYTES % (AUTO) 5.4 % (21.0-51.0); MEAN CORPUSCULAR HGB CONC 29.9 g/dL (32.0-36.0); MEAN CORPUSCULAR VOLUME 80.2 fL (79-99); NEUTROPHILS % (AUTO) 90.9 % (40.0-77.0); PLATELET COUNT (AUTO) 248 K/uL (130-400); RED BLOOD CELL COUNT(AUTO) 4.29 MIL/uL (4.50-6.20); RED CELL DISTRIBUTION WIDTH 16.9 % (11.0-15.5); WHITE BLOOD COUNT (AUTO) 9.9 K/uL (4.8-10.8)
[2021-09-09 06:10] LABS: BILIRUBIN,TOTAL 0.4 mg/dL (0.2-1.0); CREATININE 1.6 mg/dL (0.5-1.5); POTASSIUM 4.2 mmol/L (3.5-5.1); TOTAL PROTEIN, SERUM 7.8 g/dL (6.0-8.3)
[2021-09-09] MEDS: INSULIN HUMULIN R 100 UNIT/ML 3ML SQ SCH ×4 (06:34→20:57)
[2021-09-09] MEDS: FUROSEMIDE 20MG VIAL IV SCH ×2 (07:00→18:30)
[2021-09-09] MEDS ORDERED: COMPOUND IV MISC 1 EACH IVSOLN MISC PRN (08:30)
[2021-09-09] MEDS: PANTOPRAZOLE 40 MG TAB DR PO SCH (09:00)
[2021-09-09] MEDS: SOLU-MEDROL 40MG VIAL IVP SCH ×2 (09:26→20:58)
[2021-09-09] MEDS: ENOXAPARIN SODIUM 40 MG/0.4 ML SYRINGE SQ SCH (09:26)
[2021-09-09] MEDS: CARVEDILOL 3.125 MG TABLET PO SCH ×2 (09:27→20:56)
[2021-09-09] MEDS: ASPIRIN 81MG CHEW TAB PO SCH (09:27)
[2021-09-09] MEDS: SACUBITRIL/VALSARTAN 1 EACH TABLET PO SCH ×2 (09:27→20:58)
[2021-09-09] MEDS: MAGNESIUM OXIDE 400 MG TABLET PO SCH (09:27)
[2021-09-09] MEDS: AMIODARONE 200 MG TABLET PO SCH (09:27)
[2021-09-09] MEDS: FOLIC ACID 1 MG TABLET PO SCH (09:28)
[2021-09-09] MEDS: CLOPIDOGREL 75MG TAB PO SCH (09:29)
[2021-09-09] MEDS ORDERED: IPRATROPIUM/ALBUTEROL SULFATE 3 ML SOLUTION IH SCH (12:00)
[2021-09-09] MEDS: 0.9% NACL 250ML IVPB SCH (14:38)
[2021-09-09] MEDS: CEFTRIAXONE 1G VIAL IVP SCH (14:38)
[2021-09-09] MEDS: AZITHROMYCIN 500MG+NS 250ML IV SCH (14:38)
[2021-09-09] MEDS: FUROSEMIDE 40MG VIAL IV SCH ×2 (19:00→21:01)
[2021-09-09] MEDS ORDERED: ATORVASTATIN 40 MG TABLET PO SCH (21:00)
[2021-09-10] MEDS ORDERED: GUAIFENESIN-DM 200/20 MG 10 ML PO PRN (03:20)
[2021-09-10 03:39] VITALS: BP 116/54
[2021-09-10] MEDS: IPRATROPIUM/ALBUTEROL SULFATE 3 ML SOLUTION IH SCH ×2 (06:06→11:15)
[2021-09-10] MEDS: INSULIN HUMULIN R 100 UNIT/ML 3ML SQ SCH ×2 (06:14→12:19)
[2021-09-10] MEDS: FUROSEMIDE 40MG VIAL IV SCH (06:16)
[2021-09-10] MEDS ORDERED: ALENDRONATE SODIUM 35 MG TAB PO SCH (06:30)
[2021-09-10 07:30] VITALS: BP 142/79
[2021-09-10 08:31] LABS: CREATININE 1.5 mg/dL (0.5-1.5); POTASSIUM 3.9 mmol/L (3.5-5.1)
[2021-09-10 08:44] LABS: HEMATOCRIT 33.6 % (42-54); MEAN CORPUSCULAR HEMOGLOBIN 23.7 pg (27.0-33.0); MEAN CORPUSCULAR HGB CONC 29.5 g/dL (32.0-36.0); MEAN CORPUSCULAR VOLUME 80.4 fL (79-99); NUCLEATED RED BLOOD CELLS 0.1 % (0.0-0.19); RED BLOOD CELL COUNT(AUTO) 4.18 MIL/uL (4.50-6.20); RED CELL DISTRIBUTION WIDTH 17.1 % (11.0-15.5); WHITE BLOOD COUNT (AUTO) 15.5 K/uL (4.8-10.8)
[2021-09-10] MEDS: SOLU-MEDROL 40MG VIAL IVP SCH (10:29)
[2021-09-10] MEDS: ASPIRIN 81MG CHEW TAB PO SCH (10:29)
[2021-09-10] MEDS: ENOXAPARIN SODIUM 40 MG/0.4 ML SYRINGE SQ SCH (10:29)
[2021-09-10] MEDS: FOLIC ACID 1 MG TABLET PO SCH (10:30)
[2021-09-10] MEDS: CLOPIDOGREL 75MG TAB PO SCH (10:30)
[2021-09-10] MEDS: CARVEDILOL 3.125 MG TABLET PO SCH (10:30)
[2021-09-10] MEDS: AMIODARONE 200 MG TABLET PO SCH (10:30)
[2021-09-10] MEDS: SACUBITRIL/VALSARTAN 1 EACH TABLET PO SCH (10:36)
[2021-09-10] MEDS: MAGNESIUM OXIDE 400 MG TABLET PO SCH (10:36)
[2021-09-10] MEDS: PANTOPRAZOLE 40 MG TAB DR PO SCH (10:36)
[2021-09-10 11:30] VITALS: BP 141/71
[2021-09-10] MEDS ORDERED: METH4TAB3 PO (11:55)
[2021-09-10] MEDS ORDERED: ALBU8.5H8 IH (11:55)
[2021-09-10] MEDS ORDERED: AMOX-426 PO (11:55)
[2021-09-10] MEDS ORDERED: FURO40TA5 PO (11:55)
[2021-09-10] MEDS ORDERED: PANT40TA PO (11:55)
[2021-09-10] MEDS ORDERED: D-ME118S47 PO (11:57)
[2021-09-10] MEDS: 0.9% NACL 250ML IVPB SCH (15:16)
[2021-09-10] MEDS: AZITHROMYCIN 500MG+NS 250ML IV SCH (15:16)
[2021-09-10] MEDS: CEFTRIAXONE 1G VIAL IVP SCH (15:16)
[2021-09-10 15:20] VITALS: BP 141/72
[2021-09-17] MEDS ORDERED: ALENDRONATE SODIUM 35 MG TAB PO SCH (06:30)
== END 2021-09-10 18:10 | disposition home or self-care (01) | DRG 193 ==
LOC: EDH 09:05 → INTOOBSV 11:10 → OBSVTOIN 11:10 → UNDOADMOB 11:10 → EDHIP 11:10 → 3BH 09-09 00:57
PROVIDERS: ADMIT Internal Medicine; ATTEND Internal Medicine
DX: J18.9 Pneumonia, unspecified organism (principal); I50.23 Acute on chronic systolic (congestive) heart failure; J96.01 Acute respiratory failure with hypoxia; I13.0 Hypertensive heart and chronic kidney disease with heart failure and stage 1 through stage 4 chronic kidney disease, or unspecified chronic kidney disease; J44.0 Chronic obstructive pulmonary disease with (acute) lower respiratory infection; J44.1 Chronic obstructive pulmonary disease with (acute) exacerbation; J20.9 Acute bronchitis, unspecified; Z20.822 Contact with and (suspected) exposure to COVID-19; E78.5 Hyperlipidemia, unspecified; E11.51 Type 2 diabetes mellitus with diabetic peripheral angiopathy without gangrene; I25.10 Atherosclerotic heart disease of native coronary artery without angina pectoris; D64.9 Anemia, unspecified; N18.9 Chronic kidney disease, unspecified; E11.22 Type 2 diabetes mellitus with diabetic chronic kidney disease; E78.00 Pure hypercholesterolemia, unspecified; Z95.1 Presence of aortocoronary bypass graft; Z95.810 Presence of automatic (implantable) cardiac defibrillator; Z87.891 Personal history of nicotine dependence; Z85.528 Personal history of other malignant neoplasm of kidney; Z79.02 Long term (current) use of antithrombotics/antiplatelets; Z79.84 Long term (current) use of oral hypoglycemic drugs; Z79.899 Other long term (current) drug therapy; Z89.612 Acquired absence of left leg above knee; Z90.5 Acquired absence of kidney; Z88.8 Allergy status to other drugs, medicaments and biological substances
CPT/HCPCS: 36415; 36600; 71045; 74176; 78582; 80048; 80053; 81001; 82435; 82550; 82803; 82947; 82948; 83605; 83874; 83880; 84132; 84145; 84295; 84484; 85018; 85025; 85027; 87040; 87077; 87088; 87186; 87635; 87804; 93005; 93970; 94640; 94664; 94760; 97039; 99291; A9540; A9558; C9803; G0378; J0456; J0696; J1650; J1815; J1940; J2920; J2930; J7050; Q0169

== ENCOUNTER 2021-10-20 07:18 | Day surgery (SDC) | payer OTHER, MEDICARE ==
[~2021-10-20] VITALS: Ht 170.2 cm; Wt 68.9 kg
[2021-10-20] VITALS (8 sets, daily range): BP systolic 95–173; BP diastolic 68–76
[~2021-10-20 07:18] MED LIST changes: +ALBU8.5H8 IH; +AMOX-426 PO; -BACL10TA PO; +D-ME118S47 PO; -FAMO20TA8 PO; +FURO40TA5 PO; -GABA600T10 PO; +METH4TAB3 PO; +PANT40TA PO
[2021-10-20] MEDS: 0.9%NACL 1000ML 1,000 ML IV ONE (08:47)
[2021-10-20] MEDS ORDERED: PROPOFOL 10 MG/ML 20ML VIAL IV ONE (10:14)
== END 2021-10-20 11:15 | disposition home or self-care (01) ==
LOC: ENDO 07:18 → DAH 07:18 → ENDO 11:15
PROVIDERS: ATTEND Internal Medicine Gastroenterology
DX: Z12.11 Encounter for screening for malignant neoplasm of colon (principal); D12.3 Benign neoplasm of transverse colon; K57.30 Diverticulosis of large intestine without perforation or abscess without bleeding; E78.5 Hyperlipidemia, unspecified; I25.10 Atherosclerotic heart disease of native coronary artery without angina pectoris; I25.2 Old myocardial infarction; E11.40 Type 2 diabetes mellitus with diabetic neuropathy, unspecified; I12.9 Hypertensive chronic kidney disease with stage 1 through stage 4 chronic kidney disease, or unspecified chronic kidney disease; E11.22 Type 2 diabetes mellitus with diabetic chronic kidney disease; Z95.1 Presence of aortocoronary bypass graft; Z79.899 Other long term (current) drug therapy
CPT/HCPCS: 45385; 82948 ×2; 87635; 93005; A4215 ×2; A4221; A4222; A4223; A4606; A4620; A4663; C9803; J2704; J7030

== ENCOUNTER 2022-01-18 15:29 | Inpatient (IN) | payer OTHER, MEDICARE ==
[~2022-01-18] VITALS: Ht 167.6 cm; Wt 71.7 kg
[2022-01-18 16:56] LABS: BASOPHILS % (AUTO) 0.5 % (0.0-5.0); EOSINOPHILS % (AUTO) 1.9 % (0.0-8.0); HEMATOCRIT 39.3 % (42-54); LYMPHOCYTES % (AUTO) 11.6 % (21.0-51.0); MEAN CORPUSCULAR HEMOGLOBIN 25.8 pg (27.0-33.0); MEAN CORPUSCULAR HGB CONC 31.8 g/dL (32.0-36.0); MONOCYTES % (AUTO) 6.5 % (3.0-13.0); PLATELET COUNT (AUTO) 283 K/uL (130-400); RED BLOOD CELL COUNT(AUTO) 4.85 MIL/uL (4.50-6.20)
[2022-01-18 17:06] LABS: CREATININE 1.2 mg/dL (0.5-1.5); POTASSIUM 3.2 mmol/L (3.5-5.1)
[2022-01-18 17:07] LABS: INR 1.04 (0.85-1.15); PROTHROMBIN TIME 11.3 SEC (9.6-11.6)
[2022-01-18 17:08] LABS: PARTIAL THROMBOPLASTIN TIME 26.2 SEC (26.3-35.5)
[2022-01-18 17:11] LABS: ALBUMIN 2.5 g/dL (3.5-5.0); BILIRUBIN,TOTAL 0.4 mg/dL (0.2-1.0); TOTAL PROTEIN, SERUM 7.6 g/dL (6.0-8.3)
[2022-01-18 17:24] LABS: B-TYPE NATRIURETIC PEPTIDE 2670 pg/mL (0-100)
[2022-01-18] MEDS ORDERED: KCL 20 MEQ ERTAB PO ONE (17:30)
[2022-01-18] MEDS ORDERED: ASPIRIN 81 MG EC TAB PO ONE (17:30)
[2022-01-18] MEDS ORDERED: IPRATROPIUM 0.5 MG/2.5 ML INH IH PRN (17:30)
[2022-01-18 17:35] VITALS: BP 161/88
[2022-01-18 17:49] LABS: MAGNESIUM 2.1 mg/dL (1.80-2.40)
[2022-01-18 18:02] LABS: CRP QUANTITATIVE 72.8 mg/L (0.00-9.0)
[2022-01-18] MEDS: PANTOPRAZOLE 40 MG TAB DR PO SCH (18:19)
[2022-01-18] MEDS ORDERED: PHARMACY COMMUNICATION MISC SCH (18:30)
[2022-01-18] MEDS: BUDESONIDE 0.5 MG/2 ML INH IH SCH (18:50)
[2022-01-18 19:18] VITALS: BP 162/82
[2022-01-18] MEDS ORDERED: ACETAMINOPHEN 325 MG TAB PO PRN (19:30)
[2022-01-18] MEDS: SACUBITRIL/VALSARTAN 1 EACH TABLET PO SCH (20:28)
[2022-01-18] MEDS: CEFTRIAXONE 2GM VIAL IVP SCH (20:29)
[2022-01-18] MEDS: CARVEDILOL 3.125 MG TABLET PO SCH (20:29)
[2022-01-18] MEDS ORDERED: SACUBITRIL/VALSARTAN 1 EACH TABLET PO SCH ×2 (21:00)
[2022-01-18] MEDS ORDERED: CARVEDILOL 3.125 MG TABLET PO SCH (21:00)
[2022-01-18] MEDS ORDERED: INSULIN HUMULIN R 100 UNIT/ML 3ML SQ SCH (21:00)
[2022-01-18] MEDS: INSULIN HUMULIN R 100 UNIT/ML 3ML SQ SCH (21:03)
[2022-01-18] MEDS ORDERED: HEPARIN 25,000 UNITS/250ML D5W 250 ML IV SCH (22:30)
[2022-01-18 22:40] VITALS: BP 154/63
[2022-01-19 04:00] VITALS: BP 157/76
[2022-01-19 04:47] LABS: APPEARANCE,URINE Clear (CLEAR); BILIRUBIN,URINE Negative (NEGATIVE); COLOR,URINE Yellow (YELLOW); GLUCOSE, URINE (UA) Negative (NEGATIVE); KETONES,URINE Negative (NEGATIVE); LEUKOCYTE ESTERASE ,URINE Negative (NEGATIVE); NITRATE,URINE Negative (NEGATIVE); OCCULT BLOOD,URINE Negative (NEGATIVE); PROTEIN,URINE POS 2+ mg/dL (NEGATIVE)
[2022-01-19 05:10] LABS: BASOPHILS % (AUTO) 0.3 % (0.0-5.0); EOSINOPHILS % (AUTO) 2.3 % (0.0-8.0); HEMATOCRIT 35.5 % (42-54); LYMPHOCYTES % (AUTO) 15.2 % (21.0-51.0); MEAN CORPUSCULAR HEMOGLOBIN 24.5 pg (27.0-33.0); MEAN CORPUSCULAR HGB CONC 30.7 g/dL (32.0-36.0); MEAN CORPUSCULAR VOLUME 79.8 fL (79-99); MONOCYTES % (AUTO) 6.9 % (3.0-13.0); NEUTROPHILS % (AUTO) 74.9 % (40.0-77.0); PLATELET COUNT (AUTO) 263 K/uL (130-400); RED BLOOD CELL COUNT(AUTO) 4.45 MIL/uL (4.50-6.20); RED CELL DISTRIBUTION WIDTH 15.9 % (11.0-15.5); WHITE BLOOD COUNT (AUTO) 10.5 K/uL (4.8-10.8)
[2022-01-19 05:38] LABS: CHOLESTEROL 98 mg/dL (<200); HDL CHOLESTEROL 22 mg/dL (29-71); LDL DIRECT 57 mg/dL (0-99); TRIGLYCERIDES 210 mg/dL (30-200)
[2022-01-19] MEDS: INSULIN HUMULIN R 100 UNIT/ML 3ML SQ SCH ×4 (05:48→20:22)
[2022-01-19 06:24] LABS: CREATININE 1.4 mg/dL (0.5-1.5); MAGNESIUM 1.9 mg/dL (1.80-2.40); POTASSIUM 3.3 mmol/L (3.5-5.1)
[2022-01-19] MEDS: BUDESONIDE 0.5 MG/2 ML INH IH SCH ×2 (06:44→18:23)
[2022-01-19 07:30] VITALS: BP 171/80
[2022-01-19] MEDS: MAGNESIUM OXIDE 400 MG TABLET PO SCH (08:54)
[2022-01-19] MEDS: FOLIC ACID 1 MG TABLET PO SCH (08:54)
[2022-01-19] MEDS: PANTOPRAZOLE 40 MG TAB DR PO SCH (08:55)
[2022-01-19] MEDS: CLOPIDOGREL 75MG TAB PO SCH (08:55)
[2022-01-19] MEDS: SACUBITRIL/VALSARTAN 1 EACH TABLET PO SCH ×2 (08:55→20:12)
[2022-01-19] MEDS: FUROSEMIDE 40 MG TABLET PO SCH (08:55)
[2022-01-19] MEDS: CARVEDILOL 3.125 MG TABLET PO SCH ×2 (08:55→20:15)
[2022-01-19] MEDS: AMIODARONE 200 MG TABLET PO SCH (08:56)
[2022-01-19] MEDS: ASPIRIN 81 MG EC TAB PO SCH (08:56)
[2022-01-19] MEDS ORDERED: NON-FORMULARY MEDICATION 1 EACH (Magnesium Oxide (Magnesium) 400 MG) PO SCH (09:00)
[2022-01-19] MEDS ORDERED: AMIODARONE 200 MG TABLET PO SCH (09:00)
[2022-01-19 11:30] VITALS: BP 183/76
[2022-01-19 15:30] VITALS: BP 151/101
[2022-01-19] MEDS: CEFTRIAXONE 2GM VIAL IVP SCH (20:12)
[2022-01-19 20:21] VITALS: BP 156/64
[2022-01-19 23:24] VITALS: BP 170/70
[2022-01-20] VITALS (13 sets, daily range): BP systolic 131–172; BP diastolic 58–80
[2022-01-20] MEDS: CARVEDILOL 3.125 MG TABLET PO SCH ×2 (04:57→19:47)
[2022-01-20 05:13] LABS: HEMATOCRIT 35.9 % (42-54); MEAN CORPUSCULAR HEMOGLOBIN 25.3 pg (27.0-33.0); MEAN CORPUSCULAR HGB CONC 31.8 g/dL (32.0-36.0); MEAN CORPUSCULAR VOLUME 79.8 fL (79-99); RED BLOOD CELL COUNT(AUTO) 4.5 MIL/uL (4.50-6.20); RED CELL DISTRIBUTION WIDTH 15.9 % (11.0-15.5); WHITE BLOOD COUNT (AUTO) 11.4 K/uL (4.8-10.8)
[2022-01-20 05:22] LABS: CREATININE 1.3 mg/dL (0.5-1.5)
[2022-01-20 05:24] LABS: INR 1.09 (0.85-1.15); PROTHROMBIN TIME 11.8 SEC (9.6-11.6)
[2022-01-20 05:25] LABS: PARTIAL THROMBOPLASTIN TIME 55.5 SEC (26.3-35.5)
[2022-01-20] MEDS ORDERED: LIDOCAINE HCL-MPF 1% 2ML VIAL IV PRN (06:00)
[2022-01-20] MEDS ORDERED: POTASSIUM CHLORIDE 10% ELIXIR 20 MEQ/15 ML UDCUP PO PRN (06:00)
[2022-01-20] MEDS ORDERED: POTASSIUM CHLORIDE 20MEQ/100ML 100 ML IV PRN (06:00)
[2022-01-20] MEDS: KCL 20 MEQ ERTAB PO PRN ×3 (06:12→14:47)
[2022-01-20] MEDS: INSULIN HUMULIN R 100 UNIT/ML 3ML SQ SCH ×3 (06:31→16:30)
[2022-01-20] MEDS: BUDESONIDE 0.5 MG/2 ML INH IH SCH ×2 (06:43→18:54)
[2022-01-20] MEDS: FOLIC ACID 1 MG TABLET PO SCH (08:42)
[2022-01-20] MEDS: AMIODARONE 200 MG TABLET PO SCH (08:42)
[2022-01-20] MEDS: FUROSEMIDE 40 MG TABLET PO SCH (08:42)
[2022-01-20] MEDS: PANTOPRAZOLE 40 MG TAB DR PO SCH (08:44)
[2022-01-20] MEDS: MAGNESIUM OXIDE 400 MG TABLET PO SCH (08:46)
[2022-01-20] MEDS: CLOPIDOGREL 75MG TAB PO SCH (09:00)
[2022-01-20] MEDS: ASPIRIN 81 MG EC TAB PO SCH (09:00)
[2022-01-20] MEDS: SACUBITRIL/VALSARTAN 1 EACH TABLET PO SCH ×2 (09:58→19:46)
[2022-01-20] MEDS ORDERED: LIDOCAINE HCL 1% 20 ML VIAL ONE (15:24)
[2022-01-20] MEDS ORDERED: NICARDIPINE 25MG INJ IV ONE (15:24)
[2022-01-20] MEDS ORDERED: NITROGLYCERIN 50MG VIAL ONE (15:24)
[2022-01-20] MEDS ORDERED: HEPARIN 10,000 UNIT/10ML (1,000 UNIT/ML) VIAL ONE (15:24)
[2022-01-20] MEDS ORDERED: MEPERIDINE-PF 25 MG/ML SYG ONE (15:25)
[2022-01-20] MEDS ORDERED: MIDAZOLAM HCL 1 MG/ML 2ML VIAL ONE (15:25)
[2022-01-20] MEDS ORDERED: IODIXANOL 320 MG/ML 100 ML VIAL ONE (15:25)
[2022-01-20] MEDS ORDERED: FENTANYL CITRATE PF 50 MCG/1 ML 2ML VIAL ONE (15:32)
[2022-01-20] MEDS ORDERED: GLUCAGON 1MG KIT 1 MG ML IM PRN (17:00)
[2022-01-20] MEDS ORDERED: DEXTROSE 50%-WATER 50 ML DISP.SYRIN IV PRN (17:00)
[2022-01-20] MEDS ORDERED: IOHEXOL-350 50ML VIAL IV ONE (17:19)
[2022-01-20] MEDS ORDERED: IOHEXOL-350 75 ML VIAL IV ONE (17:19)
[2022-01-20] MEDS: CEFTRIAXONE 2GM VIAL IVP SCH (19:47)
[2022-01-21] VITALS (7 sets, daily range): BP systolic 105–158; BP diastolic 50–68
[2022-01-21] MEDS: INSULIN HUMULIN R 100 UNIT/ML 3ML SQ SCH ×4 (06:18→20:22)
[2022-01-21] MEDS: BUDESONIDE 0.5 MG/2 ML INH IH SCH ×2 (06:54→18:43)
[2022-01-21 08:22] LABS: POTASSIUM 3.9 mmol/L (3.5-5.1)
[2022-01-21 08:42] LABS: HEMATOCRIT 41.4 % (42-54); MEAN CORPUSCULAR HEMOGLOBIN 24.7 pg (27.0-33.0); MEAN CORPUSCULAR HGB CONC 30.4 g/dL (32.0-36.0); PLATELET COUNT (AUTO) 305 K/uL (130-400); RED BLOOD CELL COUNT(AUTO) 5.11 MIL/uL (4.50-6.20); RED CELL DISTRIBUTION WIDTH 15.9 % (11.0-15.5); WHITE BLOOD COUNT (AUTO) 10.1 K/uL (4.8-10.8)
[2022-01-21 08:52] LABS: CREATININE 1.3 mg/dL (0.5-1.5)
[2022-01-21] MEDS: ASPIRIN 81 MG EC TAB PO SCH (09:12)
[2022-01-21] MEDS: PANTOPRAZOLE 40 MG TAB DR PO SCH (09:13)
[2022-01-21] MEDS: FUROSEMIDE 40 MG TABLET PO SCH (09:13)
[2022-01-21] MEDS: MAGNESIUM OXIDE 400 MG TABLET PO SCH (09:13)
[2022-01-21] MEDS: CARVEDILOL 3.125 MG TABLET PO SCH ×2 (09:13→20:21)
[2022-01-21] MEDS: AMIODARONE 200 MG TABLET PO SCH (09:14)
[2022-01-21] MEDS: SACUBITRIL/VALSARTAN 1 EACH TABLET PO SCH ×2 (09:14→20:20)
[2022-01-21] MEDS: CLOPIDOGREL 75MG TAB PO SCH (09:14)
[2022-01-21] MEDS: FOLIC ACID 1 MG TABLET PO SCH (09:14)
[2022-01-21] MEDS ORDERED: CLOP75TA14 PO (16:31)
[2022-01-21] MEDS: CEFTRIAXONE 2GM VIAL IVP SCH (20:21)
[2022-01-22] VITALS (7 sets, daily range): BP systolic 114–153; BP diastolic 41–59
[2022-01-22 05:06] LABS: BASOPHILS % (AUTO) 0.3 % (0.0-5.0); EOSINOPHILS % (AUTO) 2.1 % (0.0-8.0); LYMPHOCYTES % (AUTO) 11.2 % (21.0-51.0); MEAN CORPUSCULAR HEMOGLOBIN 25.4 pg (27.0-33.0); MEAN CORPUSCULAR HGB CONC 31.6 g/dL (32.0-36.0); MEAN CORPUSCULAR VOLUME 80.5 fL (79-99); MONOCYTES % (AUTO) 6.6 % (3.0-13.0); NEUTROPHILS % (AUTO) 79.2 % (40.0-77.0); PLATELET COUNT (AUTO) 307 K/uL (130-400); RED BLOOD CELL COUNT(AUTO) 4.72 MIL/uL (4.50-6.20); WHITE BLOOD COUNT (AUTO) 10.2 K/uL (4.8-10.8)
[2022-01-22] MEDS: INSULIN HUMULIN R 100 UNIT/ML 3ML SQ SCH ×4 (06:13→22:46)
[2022-01-22] MEDS: BUDESONIDE 0.5 MG/2 ML INH IH SCH ×2 (06:49→17:20)
[2022-01-22] MEDS ORDERED: TRAMADOL HCL 50 MG TABLET PO PRN (09:30)
[2022-01-22] MEDS ORDERED: MORPHINE 2 MG SYG IVP PRN (09:30)
[2022-01-22] MEDS: SACUBITRIL/VALSARTAN 1 EACH TABLET PO SCH ×2 (10:51→21:08)
[2022-01-22] MEDS: CLOPIDOGREL 75MG TAB PO SCH (10:51)
[2022-01-22] MEDS: ASPIRIN 81 MG EC TAB PO SCH (10:51)
[2022-01-22] MEDS: FOLIC ACID 1 MG TABLET PO SCH (10:51)
[2022-01-22] MEDS: MAGNESIUM OXIDE 400 MG TABLET PO SCH (10:51)
[2022-01-22] MEDS: CARVEDILOL 3.125 MG TABLET PO SCH ×2 (10:52→21:09)
[2022-01-22] MEDS: PANTOPRAZOLE 40 MG TAB DR PO SCH (10:52)
[2022-01-22] MEDS: FUROSEMIDE 40 MG TABLET PO SCH (10:52)
[2022-01-22] MEDS: AMIODARONE 200 MG TABLET PO SCH (10:58)
[2022-01-22] MEDS: CEFTRIAXONE 2GM VIAL IVP SCH (21:08)
[2022-01-23 03:29] VITALS: BP 131/58
[2022-01-23 04:29] LABS: HEMATOCRIT 38.1 % (42-54); MEAN CORPUSCULAR HEMOGLOBIN 24.9 pg (27.0-33.0); MEAN CORPUSCULAR HGB CONC 30.2 g/dL (32.0-36.0); MEAN CORPUSCULAR VOLUME 82.5 fL (79-99); RED BLOOD CELL COUNT(AUTO) 4.62 MIL/uL (4.50-6.20); RED CELL DISTRIBUTION WIDTH 15.9 % (11.0-15.5); WHITE BLOOD COUNT (AUTO) 8.4 K/uL (4.8-10.8)
[2022-01-23 04:52] LABS: CREATININE 1.7 mg/dL (0.5-1.5); POTASSIUM 4.7 mmol/L (3.5-5.1)
[2022-01-23] MEDS: INSULIN HUMULIN R 100 UNIT/ML 3ML SQ SCH ×2 (06:40→12:29)
[2022-01-23] MEDS: BUDESONIDE 0.5 MG/2 ML INH IH SCH (06:57)
[2022-01-23 08:00] VITALS: BP 152/70
[2022-01-23] MEDS ORDERED: HONEY 1 APPL/ML TUBE TP SCH (09:00)
[2022-01-23] MEDS: ASPIRIN 81 MG EC TAB PO SCH (10:36)
[2022-01-23] MEDS: AMIODARONE 200 MG TABLET PO SCH (10:36)
[2022-01-23] MEDS: PANTOPRAZOLE 40 MG TAB DR PO SCH (10:37)
[2022-01-23] MEDS: SACUBITRIL/VALSARTAN 1 EACH TABLET PO SCH (10:37)
[2022-01-23] MEDS: FOLIC ACID 1 MG TABLET PO SCH (10:37)
[2022-01-23] MEDS: FUROSEMIDE 40 MG TABLET PO SCH (10:37)
[2022-01-23] MEDS: CLOPIDOGREL 75MG TAB PO SCH (10:37)
[2022-01-23] MEDS: MAGNESIUM OXIDE 400 MG TABLET PO SCH (10:37)
[2022-01-23] MEDS: CARVEDILOL 3.125 MG TABLET PO SCH (10:38)
[2022-01-23] MEDS ORDERED: AMOX-426 PO (11:44)
[2022-01-23 12:00] VITALS: BP 154/72
[2022-01-26] MEDS ORDERED: SACU1TAB7 PO (23:19)
[2022-01-26] MEDS ORDERED: AMOX1TAB15 PO (23:19)
[2022-01-26] MEDS ORDERED: ALEN70TA80 PO (23:19)
== END 2022-01-23 15:50 | disposition home health service (06) | DRG 264 ==
LOC: EDH 15:29 → EDHIP 15:30 → 2DH 17:50 → 3CH 22:39
PROVIDERS: ADMIT Internal Medicine; ATTEND Internal Medicine
PROC: B41G1ZZ Fluoroscopy of Left Lower Extremity Arteries using Low Osmolar Contrast (ICD-10-PCS; 2022-01-20)
PROC: 0JBP0ZZ Excision of Left Lower Leg Subcutaneous Tissue and Fascia, Open Approach (ICD-10-PCS; principal; 2022-01-22)
DX: E11.52 Type 2 diabetes mellitus with diabetic peripheral angiopathy with gangrene (principal); I96 Gangrene, not elsewhere classified; I50.22 Chronic systolic (congestive) heart failure; L03.115 Cellulitis of right lower limb; L97.419 Non-pressure chronic ulcer of right heel and midfoot with unspecified severity; C64.9 Malignant neoplasm of unspecified kidney, except renal pelvis; E11.621 Type 2 diabetes mellitus with foot ulcer; I11.0 Hypertensive heart disease with heart failure; Z88.8 Allergy status to other drugs, medicaments and biological substances; E78.00 Pure hypercholesterolemia, unspecified; I25.10 Atherosclerotic heart disease of native coronary artery without angina pectoris; Z79.899 Other long term (current) drug therapy; Z95.810 Presence of automatic (implantable) cardiac defibrillator; Z95.1 Presence of aortocoronary bypass graft; Z89.612 Acquired absence of left leg above knee; I25.5 Ischemic cardiomyopathy; J40 Bronchitis, not specified as acute or chronic; E78.5 Hyperlipidemia, unspecified; Z87.01 Personal history of pneumonia (recurrent); Z83.3 Family history of diabetes mellitus; Z82.49 Family history of ischemic heart disease and other diseases of the circulatory system; E11.40 Type 2 diabetes mellitus with diabetic neuropathy, unspecified; F32.A Depression, unspecified; B19.20 Unspecified viral hepatitis C without hepatic coma
CPT/HCPCS: 36415; 71045; 73630; 75635; 80048; 80053; 80061; 81003; 82550; 82948; 83735; 83880; 84145; 85025; 85027; 85610; 85651; 85730; 86140; 87071; 87077; 87186; 87205; 93926; 94640; 94664; 97039; 99156; 99157; A6407; C1769; C1894; G0378; J0696; J1644; J1815; J2175; J2250; J3010; J3480; J3490; Q9967

== ENCOUNTER → 2022-08-10 | Outpatient (CLI) | payer OTHER, MEDICARE ==
[~2022-08-10] MED LIST changes: -ALBU8.5H8 IH; -AMOX-426 PO; +CLOP75TA14 PO; -CLOP75TA32 PO; -D-ME118S47 PO; -FURO40TA5 PO; -METH4TAB3 PO; -PANT40TA PO; -SITA1TAB2 PO
== END | disposition home or self-care (01) ==
LOC: RAH 12:32
PROVIDERS: ATTEND Urology
DX: C64.2 Malignant neoplasm of left kidney, except renal pelvis (principal)
CPT/HCPCS: 76770

== ENCOUNTER → 2023-01-28 | Outpatient (CLI) | payer OTHER, MEDICARE ==
[~2023-01-28] MED LIST changes: +CLOP-31 PO; -CLOP75TA14 PO
[2023-01-28 12:12] LABS: BASOPHILS % (AUTO) 0.5 % (0.0-5.0); EOSINOPHILS % (AUTO) 2.3 % (0.0-8.0); HEMATOCRIT 41.1 % (42-54); LYMPHOCYTES % (AUTO) 20.2 % (21.0-51.0); MEAN CORPUSCULAR HEMOGLOBIN 28.6 pg (27.0-33.0); MEAN CORPUSCULAR HGB CONC 31.9 g/dL (32.0-36.0); MEAN CORPUSCULAR VOLUME 89.7 fL (79-99); MONOCYTES % (AUTO) 7.4 % (3.0-13.0); NEUTROPHILS % (AUTO) 69.1 % (40.0-77.0); PLATELET COUNT (AUTO) 190 K/uL (130-400); RED BLOOD CELL COUNT(AUTO) 4.58 MIL/uL (4.50-6.20); RED CELL DISTRIBUTION WIDTH 14.3 % (11.0-15.5); WHITE BLOOD COUNT (AUTO) 10.8 K/uL (4.8-10.8)
[2023-01-28 12:25] LABS: POTASSIUM 3.9 mmol/L (3.5-5.1)
== END | disposition home or self-care (01) ==
LOC: LAB 08:17
PROVIDERS: ATTEND Internal Medicine Cardiovascular Disease
DX: I50.22 Chronic systolic (congestive) heart failure (principal); E78.2 Mixed hyperlipidemia
CPT/HCPCS: 36415; 80053; 80061; 85025

== ENCOUNTER → 2023-02-11 | Outpatient (CLI) | payer OTHER, MEDICARE | END | disposition home or self-care (01) | LOC: RAH 14:11 | PROVIDERS: ATTEND Urology | DX: C64.2 Malignant neoplasm of left kidney, except renal pelvis (principal); N28.89 Other specified disorders of kidney and ureter | CPT/HCPCS: 76770 ==

== ENCOUNTER → 2024-05-16 | Outpatient (CLI) | payer OTHER, MEDICARE ==
[~2024-05-16] MED LIST changes: +ACET-2743 PO; -ALEN70TA80 PO; -ASPI-1005 PO; +FLUT1BLS3 IH; +FURO40TA5 PO; +GABA300C PO; +GLIP10TA9 PO; -GLIP5TAB11 PO; +INSU300I3 SQ; +LEVO750T68 PO; +PANT40TA54 PO; -ROSU20TA31 PO; +ROSU20TA73 PO
[2024-05-16 12:34] LABS: ALBUMIN 3.1 g/dL (3.5-5.0); BILIRUBIN,TOTAL 0.3 mg/dL (0.2-1.0); CREATININE 1.4 mg/dL (0.5-1.3); POTASSIUM 4.9 mmol/L (3.5-5.1); TOTAL PROTEIN, SERUM 7.2 g/dL (6.0-8.3)
== END | disposition home or self-care (01) ==
LOC: LAB 09:47
PROVIDERS: ATTEND Internal Medicine Cardiovascular Disease
DX: E11.9 Type 2 diabetes mellitus without complications (principal); I50.22 Chronic systolic (congestive) heart failure
CPT/HCPCS: 36415; 80053; 83880

== ENCOUNTER 2024-05-23 05:45 | Day surgery (SDC) | payer OTHER, MEDICARE ==
[2024-05-21 10:23] LABS: BASOPHILS # (AUTO) 0.06 K/uL (0.00-0.20); BASOPHILS % (AUTO) 0.7 % (0.0-5.0); EOSINOPHILS # (AUTO) 0.24 K/uL (0.00-0.70); EOSINOPHILS % (AUTO) 2.7 % (0.0-8.0); HEMATOCRIT 37.7 % (42-54); IMMATURE GRANULOCYTE ABSOLUTE 0.06 K/uL (0-1); LYMPHOCYTES # (AUTO) 1.3 K/uL (1.0-4.8); MEAN CORPUSCULAR HEMOGLOBIN 29.3 pg (27.0-33.0); MEAN CORPUSCULAR HGB CONC 31.6 g/dL (32.0-36.0); MEAN CORPUSCULAR VOLUME 92.9 fL (79-99); MONOCYTES # (AUTO) 0.7 K/uL (0.1-1.0); MONOCYTES % (AUTO) 7.9 % (3.0-13.0); NEUTROPHILS # (AUTO) 6.6 K/uL (1.8-7.7); PLATELET COUNT (AUTO) 158 K/uL (130-400); RED BLOOD CELL COUNT(AUTO) 4.06 MIL/uL (4.50-6.20); RED CELL DISTRIBUTION WIDTH 17.2 % (11.0-15.5)
[2024-05-21 10:31] LABS: CREATININE 1.4 mg/dL (0.5-1.3); POTASSIUM 4.8 mmol/L (3.5-5.1)
[2024-05-21 10:46] LABS: INR 0.97 (0.85-1.15); PROTHROMBIN TIME 10.5 SEC (9.6-11.6)
[2024-05-21 10:48] LABS: PARTIAL THROMBOPLASTIN TIME 25.5 SEC (26.3-35.5)
[2024-05-21 11:32] VITALS: BP 133/62; PULSE 60; RESP 17
[~2024-05-23 05:45] MED LIST changes: +ALEN70TA80 PO; +DAPA10TA PO; -FURO40TA5 PO; -LEVO750T68 PO; +SACU1TAB PO; -SACU1TAB7 PO
[2024-05-23] MEDS ORDERED: ceFAZolin SODIUM 2 GM VIAL IVPB ONE (06:00)
[2024-05-23 06:15] VITALS: BP 121/52; PULSE 60; RESP 15
[2024-05-23] MEDS ORDERED: BUPIvacaine/PF 0.25% 30ML VIAL IJ ONE (07:16)
[2024-05-23] MEDS ORDERED: LIDOCAINE HCL 1% MDV 50ML VIAL ONE (07:16)
[2024-05-23] MEDS ORDERED: MIDAZOLAM HCL 1 MG/ML 2ML VIAL ONE (07:19)
[2024-05-23] MEDS ORDERED: MEPERIDINE-PF 25 MG/ML SYG ONE (07:19)
[2024-05-23] MEDS ORDERED: ceFAZolin SODIUM 1 GM VIAL ONE (07:39)
[2024-05-23] MEDS ORDERED: FENTANYL CITRATE PF 50 MCG/1 ML 2ML VIAL ONE (07:50)
[2024-05-23] MEDS ORDERED: BACITRACIN 1 EACH PACKET TP ONE (08:17)
[2024-05-23] MEDS ORDERED: TRAM50TA4 PO (08:46)
[2024-05-23 09:00] VITALS: BP 133/47; PULSE 60; RESP 15
[2024-05-23 09:15] VITALS: BP 104/38; PULSE 61; RESP 15
[2024-05-23 09:30] VITALS: BP 107/47; PULSE 60; RESP 15
[2024-05-23 09:45] VITALS: BP 101/45; PULSE 60; RESP 15
[2024-05-23 10:15] VITALS: BP 106/52; PULSE 60; RESP 15
== END 2024-05-23 11:16 | disposition home or self-care (01) ==
LOC: DAH 05:45
PROVIDERS: ATTEND Internal Medicine Cardiovascular Disease
DX: Z45.02 Encounter for adjustment and management of automatic implantable cardiac defibrillator (principal); I25.5 Ischemic cardiomyopathy; I25.10 Atherosclerotic heart disease of native coronary artery without angina pectoris; E11.9 Type 2 diabetes mellitus without complications; E78.5 Hyperlipidemia, unspecified; K21.9 Gastro-esophageal reflux disease without esophagitis; Z95.1 Presence of aortocoronary bypass graft; I25.2 Old myocardial infarction; Z79.01 Long term (current) use of anticoagulants; Z79.899 Other long term (current) drug therapy
CPT/HCPCS: 80048; 85025; 85610; 85730; 36415; 93005; 33263; 82948 ×2; C1721; J3010; J0690; J0665; J2250; J3490; A4215; A6251; A4222; A4221; A4663; A4216; A6206; A6258; A4606; A4223 ×3; 99156; 99157; J2175

== ENCOUNTER → 2024-07-20 | Outpatient (CLI) | payer OTHER, MEDICARE ==
[~2024-07-20] MED LIST changes: +GLIP10TA16 PO; -GLIP10TA9 PO; -ROSU20TA73 PO; +ROSU20TA98 PO; +TRAM50TA4 PO
[2024-07-20 14:13] LABS: CREATININE 1.2 mg/dL (0.5-1.3); MAGNESIUM 2.2 mg/dL (1.80-2.40); POTASSIUM 4.3 mmol/L (3.5-5.1)
== END | disposition home or self-care (01) ==
LOC: LAB 09:09
PROVIDERS: ATTEND Internal Medicine Cardiovascular Disease
DX: I50.22 Chronic systolic (congestive) heart failure (principal)
CPT/HCPCS: 36415; 80048; 83735; 83880

== ENCOUNTER 2024-09-12 10:31 | Emergency (ER) | payer OTHER, MEDICARE ==
[~2024-09-12] VITALS: Ht 162.6 cm; Wt 68.0 kg
--- NOTE | 2024-09-12 10:46 | ERN ---
ED Note History of Present Illness Stated Complaint: WEAKNESS Chief Complaint: Weakness Time Seen by MD: 10:42 Dictation: PATIENT IS A 73-YEAR-OLD MALE COMING IN VIA EMS FROM HOME WITH COMPLAINTS OF HAVING MILD SHORTNESS A BREATH FOR THE LAST 2-3 DAYS WITH GENERALIZED BODY WEAKNESS. HE STATES THE WEAKNESS HAS GOTTEN PROGRESSIVELY WORSE. HE DENIES FEVER CHILLS NAUSEA VOMITING NO ABDOMINAL PAIN. HE IS A BILATERAL AMPUTEE LOWER EXTREMITIES, HAS A HISTORY OF COPD AND USES A NEBULIZER AT HOME. HE STATES HE HAS HAD A NONPRODUCTIVE COUGH. PER EMS, HE WAS SATTING 91-92% ON ROOM AIR AT HOME. HE DOES NOT USE HOME O2 CONTINUOUSLY Allergies: Coded Allergies: hydromorphone (Unverified Allergy, Unknown, 03/21/21) meperidine (Unverified Allergy, Unknown, 06/25/17) HYPOTENSION oxycodone (Unverified Allergy, Unknown, SLURRED SPEECH, 03/24/22) Home Meds Active Scripts Tramadol Hcl (Tramadol HCl) 50 Mg Tablet, 50 MG PO Q6HPRN PRN for PAIN, #15 TAB 0 Refills Prov:STEVEN PAUL MD 05/23/24 Clopidogrel Bisulfate (Plavix) 75 Mg Tablet, 75 MG PO DAILY, #30 TAB Prov:DEE DEE GUNTER I WASHROOM ATTENDANT 01/21/22 Reported Medications Sacubitril/Valsartan (Entresto 24 mg-26 mg Tablet) 24 Mg-26 Mg Tablet, 1 EACH PO BID, TAB 05/21/24 Alendronate Sodium (Alendronate Sodium) 70 Mg Tablet, 70 MG PO QWEEK, TAB 05/21/24 Dapagliflozin Propanediol (Farxiga) 10 Mg Tablet, 10 MG PO AM, TAB 05/21/24 Acetaminophen (Tylenol Extra Strength) 500 Mg Tablet, 1 TAB PO Q6HPRN PRN for MILD PAIN (1-3), TAB 12/02/23 Insulin Glargine,Hum.rec.anlog (Toujeo Max Solostar) 300 Unit/Ml (3 Ml) Insuln.pen, 30 UNITS SQ DAILY 12/02/23 Fluticasone/Umeclidin/Vilanter (Trelegy Ellipta 100-62.5-25) 100-62.5 Blst.w.dev, 1 PUFF IH DAILY 12/02/23 Rosuvastatin Calcium (Rosuvastatin Calcium) 20 Mg Tablet, 20 MG PO HS, TAB 10/16/23 Amiodarone HCl (Amiodarone HCl) 200 Mg Tablet, 200 MG PO DAILY, TAB 10/16/23 Glipizide (Glipizide) 10 Mg Tablet, 10 MG PO BIDMEALS, TAB 10/16/23 Pantoprazole Sodium (Pantoprazole Sodium) 40 Mg Tablet.dr, 40 MG PO DAILY, TAB 10/16/23 Gabapentin (Neurontin) 300 Mg Capsule, 300 MG PO BID, CAP 10/16/23 Folic Acid (Folic Acid) 0.4 Mg Tablet, 1 MG PO DAILY, TAB 03/21/21 Carvedilol (Carvedilol) 3.125 Mg Tablet, 3.125 MG PO BID, TAB 03/17/21 Magnesium Oxide (Magnesium) 400 Mg Tablet, 400 MG PO DAILY, TAB 03/17/21 Past Medical History Past Medical History: CAD, COPD, Diabetes-Type II, High Cholesterol, Hypertension, [place] Additional Past Medical Hx: ONLY ONE KIDNEY,PVD Surgical History: CABG, Pacer/AICD Surgical History Other: BILATERAL AKA Social History: Negative, Lives with family, Other RN Note Reviewed/Agreed w/PFSH: Yes Review of System Dictation CONSTITUTIONAL: NEGATIVE EXCEPT FOR HPI WEAKNESS HEAD/FACE: NEGATIVE EXCEPT FOR HPI EENT: NEGATIVE EXCEPT FOR HPI RESPIRATORY: NEGATIVE EXCEPT FOR HPI SOB WITH COUGH GASTROINTESTINAL/ABDOMINAL: NEGATIVE EXCEPT FOR HPI GENITOURINARY: NEGATIVE EXCEPT FOR HPI MUSCULOSKELETAL: NEGATIVE EXCEPT FOR HPI INTEGUMENTARY: NEGATIVE EXCEPT FOR HPI NEUROLOGICAL/PSYCH: NEGATIVE EXCEPT FOR HPI HEMATOLOGIC/LYMPHATIC: NEGATIVE EXCEPT FOR HPI ALL SYSTEMS NEGATIVE, EXCEPT NOTED ABOVE. 13 POINT REVIEW OF SYSTEMS ASSESSED AND ALL NEGATIVE EXCEPT FOR ABOVE. Initial Vital Sign VS Vital Signs Date Time Temp Pulse Resp B/P (MAP) Pulse Ox O2 Delivery O2 Flow Rate FiO2 09/12/24 10:34 98.2 67 18 128/73 95 Nasal Cannula 2.0 09/12/24 10:57 21 Physical Exam Dictation VITAL SIGNS REVIEWED GENERAL APPEARANCE: ALERT, ORIENTED X 3, NO ACUTE DISTRESS, WELL DEVELOPED, NOURISHED. HEAD AND FACE: NON-TRAUMATIC. EYES: PERRL, PINK CONJUNCTIVAS, EYELID NO TRAUMA, ANTERIOR CHAMBER WITH ARCUS SENILIS. EARS: PINNAS INTACT AND NO SIGNS OF TRAUMA OR ERYTHEMA EAR CANALS CLEAR AND NO DISCHARGE TM NO ERYTHEMA NOSE: NO DISCHARGE, NO BLEEDING. OROPHARYNX: MOUTH NORMAL, TONGUE PINK, PHARYNX CLEAR,NO ERYTHEMA, TONSILS NO EXUDATES, NO ABSCESSES NOTED, MUCOUS MEMBRANE MOIST NECK: SUPPLE, NON-TENDER, NO THYROMEGALY, NO MASSES, NO JVD, NO BRUITS BREAST:DEFERRED CHEST:NO TENDERNESS, NO CREPITUS, NO PARADOXICAL MOVEMENT, NO RETRACTIONS LUNGS:CLEAR, WELL-VENTILATED, SYMMETRIC, NO RALES, NO WHEEZING, NO RHONCHI, NO STRIDOR, BILATERAL BREATH SOUNDS CLEAR TO AUSCULTATION/DIMINISHED IN THE BASE HEART: REGULAR RATE, REGULAR RHYTHM, NO MURMUR, NO GALLOPS VASCULAR: NO PERIPHERAL EDEMA, ABDOMEN: SOFT, POSITIVE BOWEL SOUNDS, NONDISTENDED, NO GUARDING, NONTENDER, NO REBOUND, NO MASSES NO HEPATOMEGALY, NO SPLENOMEGALY, NO ALDRIDGE'S SIGN, NO HERNIAS. RECTAL: DEFERRED GENITAL: DEFERRED NEUROLOGICAL: NORMAL SPEECH, MOTOR FUNCTION INTACT, SENSORY FUNCTION INTACT MUSCULOSKELETAL: NECK NONTENDER, FULL RANGE OF MOTION, BACK NONTENDER, FULL RANGE OF MOTION, EXTREMITIES: BILATERAL AKA SKIN: COLOR PINK, DRY, NO TURGOR, NO RASH, NO LACERATIONS, NO ABRASIONS, NO CONTUSIONS. LYMPHATIC: DEFERRED Results (Laboratory/Radiology) Laboratory/Radiology Laboratory Tests Test 09/12/24 11:01 09/12/24 12:27 09/12/24 12:45 White Blood Count 9.9 K/uL (4.8-10.8) Red Blood Count 4.56 MIL/uL (4.50-6.20) Hemoglobin 12.8 g/dL (14.0-18.0) L Hematocrit 41.1 % (42-54) L Mean Corpuscular Volume 90.1 fL (79-99) Mean Corpuscular Hemoglobin 28.1 pg (27.0-33.0) Mean Corpuscular Hemoglobin Concent 31.1 g/dL (32.0-36.0) L Red Cell Distribution Width 15.6 % (11.0-15.5) H Platelet Count 145 K/uL (130-400) Mean Platelet Volume 12.0 fL (7.5-10.5) H Immature Granulocyte % (Auto) 0.6 % (0-1) Neutrophils (%) (Auto) 81.1 % (40.0-77.0) H Lymphocytes (%) (Auto) 8.1 % (21.0-51.0) L Monocytes (%) (Auto) 7.8 % (3.0-13.0) Eosinophils (%) (Auto) 2.2 % (0.0-8.0) Basophils (%) (Auto) 0.2 % (0.0-5.0) Neutrophils # (Auto) 8.1 K/uL (1.8-7.7) H Lymphocytes # (Auto) 0.8 K/uL (1.0-4.8) L Monocytes # (Auto) 0.8 K/uL (0.1-1.0) Eosinophils # (Auto) 0.22 K/uL (0.00-0.70) Basophils # (Auto) 0.02 K/uL (0.00-0.20) Absolute Immature Granulocyte (auto 0.06 K/uL (0-1) Nucleated Red Blood Cells 0.0 % (0.0-0.19) White Cell Morphology Comment See comments Sodium Level 140 mmol/L (136-145) Potassium Level 4.1 mmol/L (3.5-5.1) Chloride Level 107 mmol/L (101-111) Carbon Dioxide Level 25 mmol/L (21-32) Blood Urea Nitrogen 28 mg/dL (7-18) H Creatinine 1.3 mg/dL (0.5-1.3) Glomerular Filtration Rate Calc 59 mL/min (>90) Random Glucose 181 mg/dL (70-105) H Total Calcium 8.6 mg/dL (8.5-10.1) Troponin I High Sensitivity 17 ng/L (4-75) B-Type Natriuretic Peptide 364 pg/mL (0-100) H SARS-CoV-2 Antigen (Rapid) PRESUMPTIVE NEGATIVE Urine Color LIGHT-YELLOW (YELLOW) Urine Appearance CLEAR (CLEAR) Urine pH 5.5 (5.0-8.0) Urine Specific [place] 1.026 (1.001-1.031) Urine Protein 70 mg/dL (NEGATIVE) H Urine Glucose (UA) >=1000 mg/dL (NEGATIVE) H Urine Ketones NEGATIVE mg/dL (NEGATIVE) Urine Occult Blood NEGATIVE (NEGATIVE) Urine Nitrate NEGATIVE (NEGATIVE) Urine Bilirubin NEGATIVE mg/dL (NEGATIVE) Urine Urobilinogen 0.2 mg/dL (0.2-1.0) Urine Leukocyte Esterase NEGATIVE Ankur/uL Urine RBC 2-5 /HPF (0-1) H Urine WBC 0-1 /HPF (0-1) Urine Bacteria None /HPF (None Seen) Labs Reviewed?: Yes EKG Comment: EKG sinus rhythm/heart rate 75/axis normal/nonspecific intraventricular conduction delay ED Course ED Course Orders Procedure Category Date Status Time Methylprednisolone PHA 09/12/24 Complete Succ 125mg (Solu-Medr 11:00 Ipratropium/Albuterol PHA 09/12/24 Complete Neb (Duoneb) 11:00 Covid19 (Sars Antigen LAB 09/12/24 Complete Rapid) 10:42 Cbc With Differential LAB 09/12/24 Complete 10:42 B-Type Natriuretic LAB 09/12/24 Complete Peptide 10:42 Chest 1vw RAD 09/12/24 Resulted 10:42 12 Lead Ekg Tracing- EKG 09/12/24 Complete Technical 10:42 Troponin I High LAB 09/12/24 Complete Sensitivity 10:42 Basic Metabolic Panel LAB 09/12/24 Complete 10:42 Urinalysis Profile LAB 09/12/24 Complete 10:43 Furosemide 40mg Vial PHA 09/12/24 Complete (Lasix 40mg Vial) 13:00 Current Medications Medications (Trade) Dose Ordered Sig/Jamison Route PRN Reason Start Time Stop Time Status Last Admin Dose Admin Albuterol (DUOneb) 1 udvial ONCE ONCE IH 09/12/24 11:00 09/12/24 11:01 DC 09/12/24 10:55 Furosemide (LASix 40MG VIAL) 40 mg ONCE ONCE IV 09/12/24 13:00 09/12/24 13:01 DC 09/12/24 14:19 Methylprednisolone Sodium Succinate (Solu-medROL 125MG) 125 mg ONCE ONCE IVP 09/12/24 11:00 09/12/24 11:01 DC 09/12/24 11:30 Vital Signs Date Time Temp Pulse Resp B/P (MAP) Pulse Ox O2 Delivery O2 Flow Rate FiO2 09/12/24 14:00 98.1 62 20 150/61 95 Nasal Cannula* 2.0 N/A 09/12/24 13:00 98.1 70 20 151/60 95 Nasal Cannula* 2.0 N/A 09/12/24 12:28 98.1 70 20 138/60 95 Nasal Cannula* 2 28 09/12/24 10:58 76 20 09/12/24 10:57 99.9 85 16 141/53 98 Room Air* 0 21 09/12/24 10:34 98.2 67 18 128/73 95 Nasal Cannula 2.0 Fourteen 55, discussed case with patient at length does not want to be admitted to the hospital states he feels better now and wishes to go home. We will be discharged home to follow up with his primary care doctor in 1-2 days and to continue his medications including his nebulizer at home. Medical Decision Making MDM MDM: Differential diagnosis: ACS/AMI/SARs COVID/bronchitis/pneumonia/fluid overload/electrolyte imbalance/UTI Rationale: Tests considered and ordered secondary to shared decision making incl ude: EKG/labs/radiology Previous outside records reviewed: Old ER visits. Reviewed Risk of complication and/or morbidity or mortality of patient management: None Medications-Per medication reconciliation see nurse's notes Need for hospitalization: Patient does not meet criteria for hospitalization. None Need for emergency major/minor surgery: No There are no social concerns with this patient. Prescription drug management none Prescriptions will include symptomatic care Patient's prior external medical records from other ER visits were reviewed by me as indicated. Prior testing and results from previous visits were reviewed. Prior tests were taken into account with medical decision making and resource utilization, independent historian/historians were used to obtain complete medical history. I independently interpreted the test that were performed, results were reviewed by me and considered findings on radiology if ordered. Medical management and examination interpretation discussions were had by me with other qualified healthcare professionals as indicated for the patient's care. DX & DISP Disposition: Discharge Departure Impression: Primary Impression: CHF exacerbation Additional Impressions: COPD (chronic obstructive pulmonary disease), Stage III chronic kidney disease, Hyperglycemia Condition: Stable Scripts Levofloxacin (Levofloxacin) 500 Mg Tablet 1 TAB PO DAILY for 10 Days, #10 TAB 0 Refills Prov: GRAHAM PAEZ NP 09/12/24 Additional Instructions: Follow-up with primary care provider in 1 to 2 days. Take medications as directed here in the emergency room. Okay to continue home medications unless otherwise discussed during your visit in the emergency room today. Return to your nearest emergency room if symptoms worsen or if there is no improvement. Call 911 if you need immediate assistance. Take Tylenol or Motrin [id number] as needed and if no contraindications are present. Increase oral hydration. A wound culture or urine culture was ordered here in the emergency room department please follow-up with primary care provider and advise them to get repeat ports from our facility. If you had any Franko wrap/splints that were applied here, please do not remove them until you see your primary care or specialty. Continue all medications and treatments at home. Follow up with your primary care doctor in 1-2 days. Take antibiotics as directed until gone. Referrals: MATT ROMERO MD (PCP) Time of Disposition: 14:59 I have reviewed the case, and I agree with, Diagnosis and Plan GRAHAM PAEZ NP Sep 12, 2024 10:46
[2024-09-12] MEDS: IpraTROPium/alBUTERol SULFATE 3 ML SOLUTION IH ONE (10:55)
[2024-09-12 10:58] VITALS: PULSE 76; RESP 20
[2024-09-12 11:18] LABS: CREATININE 1.3 mg/dL (0.5-1.3); POTASSIUM 4.1 mmol/L (3.5-5.1)
[2024-09-12] MEDS: Solu-medROL 125MG VIAL IVP ONE (11:30)
[2024-09-12 11:45] LABS: B-TYPE NATRIURETIC PEPTIDE 364 pg/mL (0-100); BASOPHILS # (AUTO) 0.02 K/uL (0.00-0.20); BASOPHILS % (AUTO) 0.2 % (0.0-5.0); EOSINOPHILS # (AUTO) 0.22 K/uL (0.00-0.70); EOSINOPHILS % (AUTO) 2.2 % (0.0-8.0); HEMATOCRIT 41.1 % (42-54); IMMATURE GRANULOCYTE ABSOLUTE 0.06 K/uL (0-1); LYMPHOCYTES # (AUTO) 0.8 K/uL (1.0-4.8); LYMPHOCYTES % (AUTO) 8.1 % (21.0-51.0); MEAN CORPUSCULAR HEMOGLOBIN 28.1 pg (27.0-33.0); MEAN CORPUSCULAR HGB CONC 31.1 g/dL (32.0-36.0); MEAN CORPUSCULAR VOLUME 90.1 fL (79-99); MONOCYTES # (AUTO) 0.8 K/uL (0.1-1.0); MONOCYTES % (AUTO) 7.8 % (3.0-13.0); NEUTROPHILS # (AUTO) 8.1 K/uL (1.8-7.7); NEUTROPHILS % (AUTO) 81.1 % (40.0-77.0); PLATELET COUNT (AUTO) 145 K/uL (130-400); RED BLOOD CELL COUNT(AUTO) 4.56 MIL/uL (4.50-6.20); RED CELL DISTRIBUTION WIDTH 15.6 % (11.0-15.5); WHITE BLOOD COUNT (AUTO) 9.9 K/uL (4.8-10.8)
--- NOTE | 2024-09-12 11:48 | HMCIMG ---
CHEST 1VW HISTORY: Shortness of breath COMPARISON: 12/01/2003 FINDINGS: A frontal projection of the chest was obtained. Prominent interstitial markings are seen with possible superimposed infiltrates. Poststernotomy changes are seen. The heart is enlarged. Degenerative changes of the thoracolumbar spine are present. Pacemaker is seen entering from the left. No evidence of aortic calcification is seen. IMPRESSION: 1. Prominent interstitial markings are seen with possible superimposed infiltrates.
[2024-09-12 13:52] LABS: ADD UA MICROSCOPIC YES
[2024-09-12 13:53] LABS: APPEARANCE,URINE CLEAR (CLEAR); BILIRUBIN,URINE NEGATIVE (NEGATIVE); COLOR,URINE LIGHT-YELLOW (YELLOW); GLUCOSE, URINE (UA) >=1000 mg/dL (NEGATIVE); KETONES,URINE NEGATIVE (NEGATIVE); LEUKOCYTE ESTERASE ,URINE NEGATIVE Leu/uL (NEGATIVE); MUCUS,URINE RARE LPF (None Seen); NITRATE,URINE NEGATIVE (NEGATIVE); OCCULT BLOOD,URINE NEGATIVE (NEGATIVE); PH,URINE 5.5 (5.0-8.0); PROTEIN,URINE 70 mg/dL (NEGATIVE); UROBILINOGEN,URINE 0.2 mg/dL (0.2-1.0); WBC,URINE 0-1 /HPF (0-1)
[2024-09-12] MEDS: furoSEMIDE 40MG VIAL IV ONE (14:19)
--- NOTE | 2024-09-12 14:19 | EKG ---
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
[2024-09-12] MEDS ORDERED: LEVO-70 PO (15:00)
[2024-09-12 16:30] VITALS: BP 157/71; PULSE 60; RESP 20; TEMP 98.1; O2SAT 95
--- NOTE | 2024-09-12 17:00 | NUR ---
PATIENT EDUCATION PROVIDED ON DISCHARGE INSTRUCTIONS AND ABX TREATMENT. PATIENTS FAMILY VERBALIZES UNDERSTANDING AND REQUESTED TRANSFER HOME VIA EMS.
--- NOTE | 2024-09-12 18:00 | NUR ---
PATIENTS FAMILY REQUESTED TO SPEAK WITH CHARGE NURSE; UMER PAEZ SPOKE WITH FAMILY; PATIENT VERBALIZES FEELING WELL. EMS TO TRANSFER PATIENT HOME. INTERVENTIONS PROVIDED EXPLAINED TO FAMILY.
== END 2024-09-12 19:00 | disposition home or self-care (01) ==
LOC: EDH 10:31
DX: I13.0 Hypertensive heart and chronic kidney disease with heart failure and stage 1 through stage 4 chronic kidney disease, or unspecified chronic kidney disease (principal); E11.22 Type 2 diabetes mellitus with diabetic chronic kidney disease; N18.30 Chronic kidney disease, stage 3 unspecified; J44.9 Chronic obstructive pulmonary disease, unspecified; E11.65 Type 2 diabetes mellitus with hyperglycemia; E78.00 Pure hypercholesterolemia, unspecified; I25.10 Atherosclerotic heart disease of native coronary artery without angina pectoris; Z79.02 Long term (current) use of antithrombotics/antiplatelets; Z79.4 Long term (current) use of insulin; Z79.899 Other long term (current) drug therapy; Z88.5 Allergy status to narcotic agent; Z89.611 Acquired absence of right leg above knee; Z89.612 Acquired absence of left leg above knee; Z95.1 Presence of aortocoronary bypass graft; Z95.810 Presence of automatic (implantable) cardiac defibrillator; Z20.822 Contact with and (suspected) exposure to COVID-19
CPT/HCPCS: 99285; 96374; 71045; 96375; 87426; 84484; 80048; 83880; 85025; 81001; 36415; 93005; 94640; J2919; J1940

== ENCOUNTER → 2025-01-31 | Outpatient (CLI) | payer OTHER, MEDICARE ==
[~2025-01-31] MED LIST changes: +LEVO-70 PO
== END | disposition home or self-care (01) ==
LOC: LAB 08:20
PROVIDERS: ATTEND Internal Medicine Cardiovascular Disease
DX: I50.22 Chronic systolic (congestive) heart failure (principal)
CPT/HCPCS: 36415; 80048; 83880

== ENCOUNTER → 2025-09-10 | Outpatient (CLI) | payer OTHER, MEDICAID ==
[~2025-09-10] MED LIST changes: -AMIO200T68 PO; +AMIO200T73 PO
--- NOTE | 2025-09-10 13:50 | HMCIMG ---
EXAM: CR CHEST, 2 VIEWS CLINICAL HISTORY: Chronic systolic congestive cardiac failure, obstructive sleep apnea. COMPARISON: None provided. TECHNIQUE: Frontal and lateral radiographs of the chest. FINDINGS: Lines/Devices: Left chest wall pacemaker with its electrodes overlying the right heart chambers. Lungs: Minimal pleuroparenchymal scarring in the apical regions bilaterally. No lung infiltrates. No consolidation is observed. There is no pleural effusion. There is no pneumothorax. Mediastinum and cardiovascular structures: Median sternotomy status. Multiple CABG clips are visualized. Aortic knuckle calcifications present. The cardiac silhouette is not enlarged. The central airway and mediastinal contours are unremarkable. Bones and soft tissues: Degenerative changes in the thoracic spine. IMPRESSION: 1. No acute cardiopulmonary process. 2. Status post median sternotomy and CABG. 3. Left chest wall pacemaker. /[place]
== END | disposition home or self-care (01) ==
LOC: RAH 08:11
PROVIDERS: ATTEND Internal Medicine Cardiovascular Disease
DX: I50.22 Chronic systolic (congestive) heart failure (principal); G47.33 Obstructive sleep apnea (adult) (pediatric); Z95.1 Presence of aortocoronary bypass graft; Z98.890 Other specified postprocedural states; Z95.0 Presence of cardiac pacemaker
CPT/HCPCS: 71046